=== PATIENT | female | born 1980 | race American Indian/Alaskan Native ===

== ENCOUNTER 2018-05-21 10:34 | Inpatient (IN) | payer MEDICAID ==
[2018-05-21 11:57] LABS: Bilirubin,Urine NEG (Negative); Blood,Urine NEG (Negative); Color,Urine Yellow (Yellow); Mucus,Urine FEW /HPF; Protein,Urine <15 mg/dL mg/dL (Negative); Urobilinogen,Urine < 2.0 mg/dL (<2.0); WBC,Urine < 1.0 /HPF (0.0-6.0)
[2018-05-21] MEDS ORDERED: LACTATED RINGERS 500 ML IV ONE (12:27)
[2018-05-21 12:36] LABS: Hematocrit 32.1 % (30.3-42.9); Hemoglobin 10.9 gm/dl (10.1-14.3); Mean Corpuscular HGB Conc 34 % (30-34); Mean Corpuscular Volume 86 fl (79-97); Platelet Count 245 K/mm3 (140-440); Red Blood Count 3.74 M/mm3 (3.65-5.03)
[2018-05-21 13:03] LABS: Alanine Aminotransferase 6 units/L (7-56); Uric Acid 3.6 mg/dL (3.5-7.6)
--- NOTE | 2018-05-21 13:16 | Ultrasound Report ---
ULTRASOUND BIOPHYSICAL PROFILE: History: well being Technique: Transabdominal ultrasound with Doppler interrogation. 2 - breathing movements 2 - movements 2 - posture and tone 2 - Qualitative amniotic fluid volume 8 - TOTAL SCORE OF POSSIBLE 8 Heart Rate (bpm) 137
[2018-05-21] MEDS ORDERED: TYLENOL PO ONE (13:38)
[2018-05-21] MEDS ORDERED: TYLENOL PO PRN (14:00)
[2018-05-21] MEDS ORDERED: COLACE PO PRN (14:00)
[2018-05-22] MEDS: PRENATAL VITAMIN PO SCH (10:25)
--- NOTE | 2018-05-22 13:09 | History and Physical Report ---
History of Present Illness Date of examination: 05/22/18 Date of admission: 05/21/18 14:39 Chief complaint: Elevated BP History of present illness: 37 [facility] to elevated BP. Patient is 36 4/7 weeks with a TAMMY 06/15/18. Denies Leakage of fluid, vaginal bleeding. Reports intermittent h/a with elevation of BP. Today's BP 120s-130s/70s-80s. Past History Past Surgical History: no surgical history Social history: single, smoking. denies: alcohol abuse, prescription drug abuse - Obstetrical History Expected Date of Delivery: 06/15/18 Actual Gestation: 36 Week(s) 4 Day(s) : 10 Para: 5 Hx # Term Pregnancies: 5 Number of Pregnancies: 0 Spontaneous Abortions: 2 Induced : 2 Number of Living Children: 4 Medications and Allergies Allergies Allergy/AdvReac Type Severity Reaction Status Date / Time No Known Allergies Allergy Verified 03/28/18 04:39 Home Medications Medication Instructions Recorded Confirmed Last Taken Type Acetaminophen [Tylenol Extra 1,000 mg PO PRN 03/28/18 03/28/18 03/27/18 History Strength] Pnv,Calcium 72/Iron/Folic Acid 1 tab PO QDAY 03/28/18 03/28/18 03/25/18 History [Pnv Plus Multivit Tab] Active Meds: Active Medications Acetaminophen (Tylenol) 650 mg PO Q4H PRN PRN Reason: Pain MILD(1-3)/Fever >100.5/POLLACK Docusate Sodium (Colace) 100 mg PO Q12H PRN PRN Reason: Constipation Lactated Ringer's (Lactated Ringers) 1,000 mls @ 125 mls/hr IV DIRECT EVELYN Multivitamins/Iron/Calcium ( Vitamin) 1 each PO QDAY [facility] Last Admin: 05/22/18 10:25 Dose: 1 each Documented by: Review of Systems All systems: negative - Vital Signs Vital signs: Vital Signs Pulse BP 96 H 184/88 05/21/18 10:48 05/21/18 10:48 Temp Pulse Resp BP Pulse Ox 98.6 F 74 18 142/85 98 05/22/18 11:29 05/22/18 11:29 05/22/18 11:29 05/22/18 10:18 05/22/18 11:29 - Physical Exam Breasts: Positive: normal Cardiovascular: Regular rate, Normal S1 Lungs: Positive: Clear to auscultation, Normal air movement Abdomen: Positive: normal appearance, soft, normal bowel sounds. Negative: distention, tenderness, guarding Genitourinary (Female): Positive: normal external genitalia, normal perenium Vulva: both: normal Uterus: Positive: normal size, normal contour Adnexa: both: normal Anus/Rectum: Positive: normal perianal skin Extremities: Positive: normal Deep Tendon Reflex Grade: Normal +2 - Obstetrical FHR: category 1 Uterine Contraction Pattern: Regular Uterine Tone Measurement Phase: Contraction Uterine Contraction Intensity: Mild Results Result Diagrams: 05/21/18 11:55 05/21/18 11:55 All other labs normal. Assessment and Plan A 1. IUP 36 4/7 weeks 2. 24 hour urine pending results 3. BP 120s-130s/70s-80s 4. CHTN 5. Hx IUFD 6. Hx Preeclampsia P 1. DMZ x4 doses for lung maturity 2. Deliver at 37 weeks 3. appreciate M recommendations
--- NOTE | 2018-05-22 15:51 | Consultation ---
History of Present Illness Consult date: 05/22/18 Requesting physician: LISA MOISE Reason for consult: other (Elevated Blood pressure) History of present illness: This is a 37 yo AA female female who was sent from her primary OBs office secondary to elevated BP. Patient is 36 4/7 weeks with a TAMMY 06/15/18. Denies Leakage of fluid, vaginal bleeding. Reports intermittent h/a with elevation of BP. Today's BP 120s-130s/70s-80s. Past History Past Medical History: hypertension, other (CHTN, Hx Preeclampsia, Hx IUFD, HSV II) Family/Genetic History: other (non pertinent) Social history: no significant social history - Obstetrical History : 10 Medications and Allergies Allergies Allergy/AdvReac Type Severity Reaction Status Date / Time No Known Allergies Allergy Verified 03/28/18 04:39 Home Medications Medication Instructions Recorded Confirmed Last Taken Type Acetaminophen [Tylenol Extra 1,000 mg PO PRN 03/28/18 03/28/18 03/27/18 History Strength] Pnv,Calcium 72/Iron/Folic Acid 1 tab PO QDAY 03/28/18 03/28/18 03/25/18 History [Pnv Plus Multivit Tab] Active Meds: Active Medications Acetaminophen (Tylenol) 650 mg PO Q4H PRN PRN Reason: Pain MILD(1-3)/Fever >100.5/POLLACK Docusate Sodium (Colace) 100 mg PO Q12H PRN PRN Reason: Constipation Lactated Ringer's (Lactated Ringers) 1,000 mls @ 125 mls/hr IV DIRECT EVELYN Multivitamins/Iron/Calcium ( Vitamin) 1 each PO QDAY [facility] Last Admin: 05/22/18 10:25 Dose: 1 each Documented by: Valacyclovir HCl (Valtrex) 500 mg PO BID [facility] Review of Systems Constitutional: other (denies fever, chills) Eyes: deferred Ears, nose, mouth and throat: deferred Cardiovascular: other (denies chest pain) Respiratory: other (denies shortness of breath) Gastrointestinal: other (gravid, nontender) Neurological: other (denies headache at present, visual disturbances) - Vital Signs Vital signs: Vital Signs Pulse BP 96 H 184/88 05/21/18 10:48 05/21/18 10:48 Temp Pulse Resp BP Pulse Ox 98.6 F 74 18 142/85 98 05/22/18 11:29 05/22/18 11:29 05/22/18 11:29 05/22/18 10:18 05/22/18 11:29 - Physical Exam Breasts: Positive: deferred Cardiovascular: Regular rate Lungs: Positive: Normal air movement Abdomen: Positive: normal appearance, other (gravid) Results Result Diagrams: 05/21/18 11:55 05/21/18 11:55 All other labs normal. Assessment and Plan Assessment 1. 36 4/7 weeks 2. 24 hour urine pending results 3. BP 120s-130s/70s-80s 4. CHTN 5. Hx IUFD 6. Hx Preeclampsia Recommendations 1. Betamethasone x2 doses for lung maturity 2. Deliver at 37 weeks 3. With continued elevated BP or compromise delivery is recommended Please call our remi DEVLIN, Dr. Velez for any questions or concern. Thank you.
[2018-05-22] MEDS ORDERED: DECADRON ONE (21:45)
[2018-05-22] MEDS ORDERED: DECADRON IV SCH (21:57)
[2018-05-23] MEDS: VALTREX PO SCH ×3 (01:00→22:59)
[2018-05-23] MEDS: LACTATED RINGERS 1,000 ML IV SCH ×3 (01:00→18:15)
[2018-05-23] MEDS: AMBIEN PO PRN ×2 (01:40→23:02)
--- NOTE | 2018-05-23 06:47 | Progress Note ---
Assessment and Plan A 1. IUP 36 5/7 weeks 2. 24 hour urine pending results 3. BP 120s-130s/70s-80s 4. CHTN 5. Hx IUFD 6. Hx Preeclampsia P 1. DMZ x4 doses for lung maturity ( first dose given second dose 11am today) 2. Deliver at 37 weeks ( sunday) 3. appreciate [facility] recommendations Subjective - Subjective Date of service: 05/23/18 Principal diagnosis: hx of iufd, hx of pree, obesity Interval history: 37 yo female who was sent from [place] yesterday secondary to elevated BP. Patient is 36 4/7 weeks with a TAMMY 06/15/18. Denies Leakage of fluid, vaginal bleeding. Reports intermittent h/a with elevation of BP. Today's BP 120s-130s/70s-80s. Patient reports: movement normal, no new complaints, no loss of fluid, no vaginal bleeding, no contractions Objective - Vital Signs Vital Signs: Vital Signs - 12hr 05/22/18 05/22/18 05/22/18 19:10 19:15 19:44 Temperature 98.0 F Pulse Rate 97 H 88 Respiratory 16 Rate Blood Pressure 171/97 149/81 Blood Pressure 171/97 [Left] 05/22/18 05/23/18 05/23/18 23:47 00:12 00:14 Temperature 97.4 F L Pulse Rate 95 H 85 Respiratory 18 Rate Blood Pressure 130/75 130/68 Blood Pressure [Left] 05/23/18 05/23/18 05/23/18 01:15 02:15 03:15 Temperature Pulse Rate 83 93 H 91 H Respiratory Rate Blood Pressure 139/72 110/60 127/60 Blood Pressure [Left] 05/23/18 05/23/18 05/23/18 04:15 04:45 06:15 Temperature 99 F Pulse Rate 93 H 98 H Respiratory 18 Rate Blood Pressure 120/64 156/84 Blood Pressure [Left] - Exam Breasts: normal Cardiovascular: Regular rate, Normal S1 Lungs: Clear to auscultation, Normal air movement Abdomen: Present: normal appearance, soft, normal bowel sounds. Absent: distention, tenderness, guarding Vulva: both: normal Uterus: Present: normal, firm FHR: category 1 Cervical Dilatation: 1 Cervical Effacement Percentage: 50 station: -4 Uterine Contraction Pattern: Absent Uterine Tone Measurement Phase: Resting Uterine Contraction Intensity: Mild Extremities: normal Deep Tendon Reflex Grade: Normal +2 - Labs Labs: Abnormal Labs 05/21/18 05/21/18 05/21/18 11:55 11:55 15:00 RDW 13.0 L Creatinine 0.3 L ALT 6 L Ur Total Protein 24 Hr 270.00 H Urine Total Protein 54 H Laboratory Results - last 24 hr 05/21/18 15:00 Urine Total Volume 500 Ur Total Protein 24 Hr 270.00 H Urine Total Protein 54 H
[2018-05-23] MEDS: PRENATAL VITAMIN PO SCH (11:20)
[2018-05-23] MEDS: DECADRON IM SCH ×2 (11:21→23:01)
--- NOTE | 2018-05-23 13:27 | Progress Note ---
Assessment and Plan ASSESSMENT 1. 36 weeks 5 days gestation. 2. 24 hour urine 270 mg. 3. BP 120s-130s/70s-80s - improved 4. CHTN 5. Hx IUFD 6. Hx Preeclampsia RECOMMENDATIONS 1. Betamethasone x2 doses for lung maturity 2. In the presence of overt evidence of SEVERE preeclampsia we recommend delivery of this patient. 3. At 36-37 weeks gestation; it would appear that there is some benefit to an expectant management protocol to prolong gestation in order to improve outcome without increasing maternal morbidity. In a patient with MILD preeclampsia we recommend DELIVERY at 37 weeks. In a patient with SEVERE preeclampsia we recommend DELIVERY either AT DIAGNOSIS or at 34 weeks gestation. Reference: REFERENCE: Medically indicated late- and early-term deliveries. Committee Opinion No. [id number]. [employer]. Obstet Gynecol 2013;121:76957. 4. Kindly contact [facility] if there is any question as to whether this patient is a candidate for delivery. 5. The indications for discontinuation of expectant management and DELIVERY in this patient would include ANY of the following: * heart rate abnormalities, (ie, bradycardia , repetitive late or variable decelerations) * Thrombocytopenia * Hemolysis, * Elevation in liver function tests * Blood pressure that is very labile or poorly controlled with reasonable doses of labetalol * Symptoms of severe pre-eclampsia epigastric discomfort, headache, dizziness, blurred vision, RUQ pain, seizure. * Standard obstetrical indications 6. Contact [facility] with the results of the follow-up 24 hour urine. Thank you for allowing us to participate in the care of this patient. We look forward to the opportunity to assist in her continued management. If you have any questions, we may be reached [phone]. Asha Richter M.D. Subjective - Subjective Date of service: 05/23/18 Principal diagnosis: hx of iufd, hx of pree, obesity Interval history: This is a 37 patient referred due to elevated BP. Patient is currently at 36 weeks 5 days gestation and an TAMMY 06/15/18. Denies Leakage of fluid, vaginal bleeding. Reports intermittent h/a with elevation of BP. Today's BP 120s-130s/70s-80s. Past Medical History hypertension, other (CHTN, Hx Preeclampsia, Hx IUFD, HSV II) Active Medications Acetaminophen (Tylenol) 650 mg PO Q4H PRN Docusate Sodium (Colace) 100 mg PO Q12H PRN Valacyclovir HCl (Valtrex) 500 mg PO BID EVELYN Patient reports: movement normal, no new complaints, no loss of fluid, no vaginal bleeding, no contractions Objective - Vital Signs Vital Signs: Vital Signs - 12hr 05/23/18 05/23/18 05/23/18 02:15 03:15 04:15 Temperature Pulse Rate 93 H 91 H 93 H Respiratory Rate Blood Pressure 110/60 127/60 120/64 Blood Pressure [Left] 05/23/18 05/23/18 05/23/18 04:45 06:15 07:16 Temperature 99 F Pulse Rate 98 H 91 H Respiratory 18 Rate Blood Pressure 156/84 153/93 Blood Pressure [Left] 05/23/18 05/23/18 05/23/18 09:15 09:16 12:15 Temperature 97.9 F 96.8 F L Pulse Rate 110 H 110 H 91 H Respiratory 16 16 Rate Blood Pressure 134/81 Blood Pressure 134/81 157/90 [Left] 05/23/18 12:18 Temperature Pulse Rate 91 H Respiratory Rate Blood Pressure 157/90 Blood Pressure [Left] - Labs Labs: Abnormal Labs 05/21/18 05/21/18 05/21/18 11:55 11:55 15:00 RDW 13.0 L Creatinine 0.3 L ALT 6 L Ur Total Protein 24 Hr 270.00 H Urine Total Protein 54 H Laboratory Results - last 24 hr 05/21/18 15:00 Urine Total Volume 500 Ur Total Protein 24 Hr 270.00 H Urine Total Protein 54 H
[2018-05-23] MEDS: NORMODYNE PO SCH (18:12)
[2018-05-23 19:36] LABS: Amphetamine Screen,Urine PRESUMPTIVE NEGATIVE; Benzodiazepines Screen,Urine PRESUMPTIVE NEGATIVE; Cannabinoid Screen,Urine PRESUMPTIVE NEGATIVE; Cocaine Screen,Urine PRESUMPTIVE NEGATIVE; Methadone Screen,Urine PRESUMPTIVE NEGATIVE; Opiate Screen,Urine PRESUMPTIVE NEGATIVE
[2018-05-24] MEDS: LACTATED RINGERS 1,000 ML IV SCH (01:46)
[2018-05-24] MEDS: NORMODYNE PO SCH ×3 (06:04→22:25)
--- NOTE | 2018-05-24 08:21 | Progress Note ---
Assessment and Plan A 1. IUP 36 6/7 weeks 2. 270 mg 24 hr urine protein s 3. CHTN 4. Hx IUFD 5. Hx Preeclampsia P 1. DMZ x4 doses for lung maturity ( last dose this am) 2. Deliver at 37 weeks ( sunday) 3. appreciate [facility] recommendations 4. start ripening tonight with cervidil Subjective - Subjective Date of service: 05/24/18 Principal diagnosis: hx of iufd, hx of pree, obesity Interval history: 37 [facility] BP. Patient is 36 4/7 weeks with a TAMMY 06/15/18. Denies Leakage of fluid, vaginal bleeding. Reports intermittent h/a with elevation of BP. Today's BP 120s-130s/70s-80s. Patient reports: movement normal, no new complaints, no loss of fluid, no vaginal bleeding, no contractions Objective - Vital Signs Vital Signs: Vital Signs - 12hr 05/23/18 05/24/18 05/24/18 22:26 00:15 01:15 Temperature 97.6 F Pulse Rate 83 92 H 86 Respiratory 18 Rate Blood Pressure 121/68 125/72 138/74 Blood Pressure 138/74 [Left] 05/24/18 05/24/18 05/24/18 02:15 03:30 06:01 Temperature Pulse Rate 90 103 H 89 Respiratory Rate Blood Pressure 121/71 153/82 138/84 Blood Pressure [Left] 05/24/18 05/24/18 05/24/18 06:04 06:15 08:15 Temperature Pulse Rate 89 96 H 100 H Respiratory Rate Blood Pressure 138/84 151/86 169/98 Blood Pressure [Left] - Exam Breasts: deferred Cardiovascular: Regular rate, Normal S1 Lungs: Clear to auscultation, Normal air movement Abdomen: Present: normal appearance, soft, normal bowel sounds. Absent: distention, tenderness, guarding Uterus: Present: normal, firm FHR: category 1 Cervical Dilatation: 0 - Labs Labs: Abnormal Labs 05/21/18 05/21/18 05/21/18 11:55 11:55 15:00 RDW 13.0 L Creatinine 0.3 L ALT 6 L Ur Total Protein 24 Hr 270.00 H Urine Total Protein 54 H Laboratory Results - last 24 hr 01/24/19 18:52 Urine Opiates Screen Presumptive negative Urine Methadone Screen Presumptive negative Ur Barbiturates Screen Presumptive negative Ur Phencyclidine Scrn Presumptive negative Ur Amphetamines Screen Presumptive negative U Benzodiazepines Scrn Presumptive negative Urine Cocaine Screen Presumptive negative U Marijuana (THC) Screen Presumptive negative Drugs of Abuse Note Disclamer
[2018-05-24] MEDS: VALTREX PO SCH ×2 (10:56→22:24)
[2018-05-24] MEDS: PRENATAL VITAMIN PO SCH (10:57)
[2018-05-24] MEDS ORDERED: DECADRON IM ONE (11:00)
--- NOTE | 2018-05-24 14:09 | Progress Note ---
Assessment and Plan Assessment 1. 36 6/7 weeks 2. 24 hour urine protein 270 mg 3. BP 140s-160s/80s-100s 4. CHTN 5. Hx IUFD 6. Hx Preeclampsia 7. S/P steroids for lung maturity Recommendations 1. Recommend delivery secondary to elevation of BP. I consulted with Dr. Velez and he agrees with recommendations. Please call our oncyuri [facility], Dr. Velez for any questions or concern. Thank you. Subjective - Subjective Date of service: 05/24/18 Principal diagnosis: hx of iufd, hx of pree, obesity Patient reports: movement normal, no new complaints, no loss of fluid, no vaginal bleeding, no contractions Objective - Vital Signs Vital Signs: Vital Signs - 12hr 05/24/18 05/24/18 05/24/18 02:15 03:30 06:01 Temperature Pulse Rate 90 103 H 89 Respiratory Rate Blood Pressure 121/71 153/82 138/84 05/24/18 05/24/18 05/24/18 06:04 06:15 08:15 Temperature Pulse Rate 89 96 H 100 H Respiratory Rate Blood Pressure 138/84 151/86 169/98 05/24/18 05/24/18 05/24/18 08:20 10:15 10:57 Temperature 98.4 F Pulse Rate 93 H 103 H 103 H Respiratory 18 Rate Blood Pressure 168/105 140/84 140/84 05/24/18 05/24/18 11:15 13:15 Temperature Pulse Rate 90 94 H Respiratory Rate Blood Pressure 143/77 141/85 - Exam Breasts: deferred Cardiovascular: Regular rate Lungs: Normal air movement Abdomen: Present: normal appearance, other (gravid) - Labs Labs: Abnormal Labs 05/21/18 05/21/18 05/21/18 11:55 11:55 15:00 RDW 13.0 L Creatinine 0.3 L ALT 6 L Ur Total Protein 24 Hr 270.00 H Urine Total Protein 54 H Laboratory Results - last 24 hr 05/23/18 18:52 Urine Opiates Screen Presumptive negative Urine Methadone Screen Presumptive negative Ur Barbiturates Screen Presumptive negative Ur Phencyclidine Scrn Presumptive negative Ur Amphetamines Screen Presumptive negative U Benzodiazepines Scrn Presumptive negative Urine Cocaine Screen Presumptive negative U Marijuana (THC) Screen Presumptive negative Drugs of Abuse Note Disclamer
[2018-05-24] MEDS ORDERED: CERVIDIL VG ONE (15:00)
[2018-05-24] MEDS: AMBIEN PO PRN (22:25)
[2018-05-25] MEDS: LACTATED RINGERS 1,000 ML IV SCH ×2 (06:35→18:18)
[2018-05-25] MEDS: PITOCin/NS 30 UNIT/500ML 30 UNITS/500 ML BAG IV SCH ×2 (06:35→13:37)
[2018-05-25] MEDS: NORMODYNE PO SCH ×2 (09:37→21:39)
[2018-05-25] MEDS: VALTREX PO SCH ×2 (09:37→21:40)
[2018-05-25 11:17] LABS: Hematocrit 27.3 % (30.3-42.9); Hemoglobin 9.2 gm/dl (10.1-14.3); Mean Corpuscular HGB Conc 34 % (30-34); Mean Corpuscular Volume 86 fl (79-97); Platelet Count 216 K/mm3 (140-440); Red Blood Count 3.18 M/mm3 (3.65-5.03); Red Cell Distribution Width 13.6 % (13.2-15.2)
[2018-05-25] MEDS ORDERED: STADOL IV PRN (12:57)
[2018-05-25] MEDS ORDERED: STADOL ONE (13:09)
[2018-05-25] MEDS: PRENATAL VITAMIN PO SCH (15:06)
[2018-05-25] MEDS ORDERED: AMPICILLIN/NS 2 GM/100 ML 2 GM/100 ML BAG IV ONE (16:00)
[2018-05-25] MEDS ORDERED: NARCAN 2 MG/2 ML IV PRN (17:48)
--- NOTE | 2018-05-25 17:50 | Anesthesia Consultation ---
Anesthesia Consult and Med Hx Date of service: 05/25/18 - Airway Anesthetic Teeth Evaluation: Good ROM Head & Neck: Adequate Mental/Hyoid Distance: Adequate Mallampati Class: Class II Intubation Access Assessment: Probably Good - Pulmonary Exam CTA: Yes - Cardiac Exam Cardiac Exam: RRR - Pre-Operative Health Status ASA Pre-Surgery Classification: ASA3 Proposed Anesthetic Plan: Epidural - Pulmonary Hx Asthma: No COPD: No - Cardiovascular System Hx Hypertension: No - Central Nervous System Hx Seizures: No Hx Psychiatric Problems: Yes (anxiety/depression (no meds)) - Endocrine Hx Renal Disease: No Hx End Stage Renal Disease: No Hx Hypothyroidism: No Hx Hyperthyroidism: No - Hematic Hx Anemia: Yes (not currently) Hx Sickle Cell Disease: No - Other Systems Hx Alcohol Use: No - Additional Comments Anesthesia Medical History Comments: Relevent Labs noted
[2018-05-25] MEDS ORDERED: fentaNYL-BUPIV 2 MCG/ML-0.125% 200 MCG/100 ML BAG EPIDURAL SCH (18:00)
[2018-05-26] MEDS ORDERED: REGLAN ONE (11:25)
[2018-05-26] MEDS ORDERED: PEPCID IV ONE ×2 (11:25→12:00)
[2018-05-26] MEDS ORDERED: BICITRA ONE (11:25)
[2018-05-26] MEDS ORDERED: PITOCin/NS 20 UNIT/1000ML DRIP 20,000 MILLIUNITS/1,000 ML BAG IV ONE (11:25)
[2018-05-26] MEDS ORDERED: ANCEF/STERILE WATER 2 GM/20 ML 2 GM/20 ML SYRINGE IV ONE (11:26)
--- NOTE | 2018-05-26 11:31 | Progress Note ---
Assessment and Plan Day 3 of 3 day induction for chronic htn with superimposed preeclampsia. Patient has not made any progress toward delivery. Will now proceed with . Consents signed and placed on the chart. Subjective - Subjective Date of service: 05/26/18 Principal diagnosis: hx of iufd, hx of pree, obesity Interval history: Patient had cervidil placed on 05/24, removed at 0400 on 05/25. Patient was arom at 2:30 for clear fluid. She was 2cm/50% at that time. Patient was on pitocin thru the night but did not change her cervix despite contractions. Patient is now requesting which is not unreasonable. Patient reports: movement normal, no new complaints, no loss of fluid, no vaginal bleeding, no contractions Objective - Vital Signs Vital Signs: Vital Signs - 12hr 05/25/18 05/25/18 05/26/18 23:33 23:49 00:04 Temperature Pulse Rate 64 69 70 Respiratory Rate Blood Pressure 128/72 122/68 126/67 05/26/18 05/26/18 05/26/18 00:15 00:19 00:35 Temperature 98.9 F Pulse Rate 70 71 Respiratory Rate Blood Pressure 127/76 131/79 05/26/18 05/26/18 05/26/18 00:49 01:06 01:19 Temperature Pulse Rate 68 63 70 Respiratory Rate Blood Pressure 115/71 121/70 148/84 05/26/18 05/26/18 05/26/18 01:34 01:49 01:59 Temperature Pulse Rate 71 68 Respiratory 18 Rate Blood Pressure 150/85 139/87 131/79 05/26/18 05/26/18 05/26/18 02:03 06:30 06:52 Temperature 98.7 F 99.0 F Pulse Rate 76 Respiratory Rate Blood Pressure 146/72 - Exam Breasts: deferred Cardiovascular: Regular rate, Normal S1, Normal S2 Lungs: Clear to auscultation, Normal air movement Abdomen: Present: normal appearance, soft, normal bowel sounds Vulva: both: normal Uterus: Present: normal FHR: auscultation normal Cervical Dilatation: 2 Cervical Effacement Percentage: 50 Uterine Contraction Intensity: Moderate - Labs Labs: Abnormal Labs 05/21/18 05/21/18 05/21/18 11:55 11:55 15:00 RBC Hgb Hct RDW 13.0 L Creatinine 0.3 L ALT 6 L Ur Total Protein 24 Hr 270.00 H Urine Total Protein 54 H 05/25/18 11:00 RBC 3.18 L Hgb 9.2 L Hct 27.3 L RDW Creatinine ALT Ur Total Protein 24 Hr Urine Total Protein Laboratory Results - last 24 hr 05/26/18 08:56 Blood Type O POSITIVE Antibody Screen Negative
[2018-05-26] MEDS ORDERED: LACTATED RINGERS 1,000 ML IV SCH (12:00)
[2018-05-26] MEDS ORDERED: PITOCin/NS 20 UNIT/1000ML DRIP 20 UNITS/1,000 ML BAG IV SCH ×2 (12:00→16:01)
[2018-05-26] MEDS ORDERED: BICITRA PO ONE (12:00)
[2018-05-26] MEDS ORDERED: REGLAN IV ONE (12:00)
[2018-05-26] MEDS ORDERED: ANCEF/STERILE WATER 2 GM/20 ML IV ONE (12:20)
[2018-05-26] MEDS ORDERED: XYLOCAINE MPF 2% ONE ×6 (12:30→13:38)
[2018-05-26] MEDS ORDERED: NACL 0.9% IR ONE (12:43)
[2018-05-26] MEDS ORDERED: ASTRAMORPH PF 10MG/10ML ONE (12:47)
[2018-05-26] MEDS ORDERED: WATER FOR IRRIG STERILE IR ONE (12:50)
[2018-05-26] MEDS ORDERED: VERSED ONE (12:52)
[2018-05-26] MEDS ORDERED: NARCAN 0.4 MG/1 ML IV PRN ×2 (13:49→16:01)
[2018-05-26] MEDS ORDERED: PHENERGAN PR PRN (13:49)
[2018-05-26] MEDS ORDERED: PHENERGAN PO PRN (13:49)
[2018-05-26] MEDS ORDERED: DILAUDID IV PRN ×2 (13:49→14:05)
[2018-05-26] MEDS ORDERED: ZOFRAN IV PRN (13:49)
[2018-05-26] MEDS ORDERED: BENADRYL IV PRN (13:49)
[2018-05-26] MEDS ORDERED: SODIUM CHLORIDE FLUSH SYRINGE 10 ML IV NR ×2 (14:00→16:01)
[2018-05-26] MEDS ORDERED: TORADOL IV ONE (14:03)
[2018-05-26] MEDS: NORMODYNE PO SCH (14:38)
--- NOTE | 2018-05-26 14:47 | Procedure Note ---
OB Delivery Note - Delivery Date of Delivery: 05/26/18 Surgeon: SCOTTIE LOPEZ Estimated blood loss: other (900) - Section Preop diagnosis: arrest of dilation Postop diagnosis: same section procedure: primary low transverse Disposition: PACU Complications: none Narrative: see op report - A at 1 minute: 8 at 5 minutes: 9 Infant Gender: Male (2831g 6 pounds 4 ounces)
--- NOTE | 2018-05-26 14:53 | Operative Report ---
Operative Report Operative Report: The operative report for patient Vanessa Lin Date of service 05/26/2018 Preoperative diagnosis: Intrauterine at 37.1 weeks 2. Chronic hypertension 3. Failed induction Postoperative diagnosis: Same Procedure: Primary low transverse section Surgeon: Dr. Crystal Bernal EBL: 900 mL Urine output: 200 mL IV fluids: 1100 mL Findings: Viable male in the vertex occiput posterior position. Weight 6 lbs. 4 oz. 2831 g Apgars 8 and 9]. Otherwise normal pelvic anatomy Specimens: None Complications: None Indications: Ms. Sheikh is a 37-year-old 10 para 4 who was undergoing induction due to chronic hypertension and superimposed preeclampsia which began on May 24. Cervidil was placed and then later removed following which she remained on Pitocin, however her cervix never dilated past 2 cm. Procedure: The patient was admitted to the OR with IV running and in place. She was properly identified as herself. [Her spinal had been placed in the room and she was already under the effects of anesthesia upon entry into the OR]. She was placed in the dorsal supine position with a leftward tilt. A Jc catheter was inserted. She was then prepped and draped in the normal sterile fashion. An Allis test was used to confirm adequate anesthesia. Once confirmed, the incision was made with the scalpel and carried to the underlying fascia using the scalpel and the Bovie. The fascia was incised in the midline and incision was extended bilaterally using the curved Hickey scissors. The fascia was then dissected from the underlying rectus muscles in a series of sharp and blunt dissection using the Hickey scissors. Muscles were in the in the midline sharply using Metzenbaum scissors and the peritoneum was entered into bluntly using the surgeon's fingers. A bladder blade was then placed into the incision to protect the bladder. Following this the bladder flap was created. Hysterotomy incision was then made in the scalpel. Upon uterine entry, the amniotic sac was ruptured for clear fluid. The was then delivered in the occiput posterior position. His mouth and nose were suctioned on the field. The cord was clamped and cut and he was handed to the waiting NICU personnel. The placenta was delivered manually and taken off the field. The uterus was then exteriorized and cleared of all clots and debris. The hysterotomy incision was then closed in a running locked fashion using 0 Vicryl. The abdomen was then copiously irrigated with warm normal saline. Following this the uterus was replaced into the abdominal cavity. At this point the muscles were reapproximated in the midline using individual sutures of 0 Vicryl. Following this the fascia was closed in a running fashion using 0 Vicryl. Tissue was then copiously irrigated. Skin was closed in a running fashion using 3-0 Monocryl. The patient stated that she had signed consents for bilateral tubal ligation however there was none in her chart therefore the ligation was not performed.The sponge lap needle and instrument counts were correct 2. The patient tolerated the procedure well. She was taken to recovery in stable condition.
[2018-05-26] MEDS ORDERED: LANSINOH TP PRN (16:01)
[2018-05-26] MEDS ORDERED: MORPHINE IV PRN (16:01)
[2018-05-26] MEDS ORDERED: D5LR 1,000 ML IV SCH (16:01)
[2018-05-26] MEDS ORDERED: MYLICON PO PRN (16:01)
[2018-05-26] MEDS ORDERED: TUCKS PAD TP PRN (16:01)
[2018-05-26] MEDS: IBUPROFEN PO PRN ×2 (17:43→22:45)
[2018-05-26] MEDS: PERCOCET 5/325 PO PRN ×2 (17:43→22:34)
[2018-05-26] MEDS: PROCARDIA XL PO SCH (22:14)
[2018-05-27 03:27] LABS: Hematocrit 26.3 % (30.3-42.9); Hemoglobin 8.7 gm/dl (10.1-14.3)
[2018-05-27] MEDS: MILK OF MAGNESIA PO PRN ×2 (06:01→21:48)
[2018-05-27] MEDS: PERCOCET 5/325 PO PRN ×3 (06:03→21:48)
[2018-05-27] MEDS: IBUPROFEN PO PRN ×3 (06:04→21:49)
--- NOTE | 2018-05-27 08:56 | Progress Note ---
Assessment and Plan - Patient Problems (1) delivery delivered Current Visit: Yes Status: Acute Plan to address problem: patient doing well routine postop care Subjective - Subjective Date of service: 05/27/18 Principal diagnosis: hx of iufd, hx of pree, obesity Interval history: Patient without complaints. States she has had flatus. Pain well controlled Patient reports: appetite normal, voiding normally, pain well controlled Objective - Vital Signs Latest vital signs: Vital Signs Temp Pulse Resp BP BP Pulse Ox 05/27/18 07:04 18 05/27/18 07:03 18 05/27/18 04:00 98.2 F 98 H 20 135/82 05/27/18 00:00 98.0 F 83 18 130/75 05/26/18 22:00 98.3 F 76 16 131/77 05/26/18 20:05 98.2 F 72 18 135/88 05/26/18 15:20 98.3 F 81 20 132/83 99 05/26/18 15:07 98.8 F 88 18 132/68 99 05/26/18 14:43 77 18 149/86 99 05/26/18 14:38 70 140/71 05/26/18 14:30 81 18 150/85 100 05/26/18 14:29 18 05/26/18 14:15 77 18 158/90 100 05/26/18 14:10 18 05/26/18 14:00 78 20 129/72 100 05/26/18 13:44 68 18 118/72 99 05/26/18 13:39 69 18 114/67 99 05/26/18 13:34 78 18 114/68 99 05/26/18 13:29 97.7 F 77 20 113/64 99 05/26/18 12:00 90 152/81 05/26/18 11:57 89 163/87 Intake and Output 05/26/18 05/27/18 05/27/18 22:59 06:59 14:59 Intake Total 250 480 Output Total 300 Balance 250 180 Intake: Oral 480 Other 250 Output: Urine 300 Indwelling Catheter 300 Other: Total, Intake Amount 250 240 Total, Output Amount 300 # Voids Void 2 - Exam Abdomen: Present: normal appearance Incision: Present: dressed - Labs Labs: Abnormal lab results 05/27/18 Range/Units 02:53 Hgb 8.7 L (10.1-14.3) gm/dl Hct 26.3 L (30.3-42.9) %
[2018-05-27] MEDS: FEOSOL PO SCH (10:15)
[2018-05-27] MEDS: PROCARDIA XL PO SCH ×2 (10:15→21:48)
[2018-05-28] MEDS: IBUPROFEN PO PRN ×2 (06:28→15:02)
[2018-05-28] MEDS: PERCOCET 5/325 PO PRN ×2 (06:28→15:01)
--- NOTE | 2018-05-28 08:13 | Progress Note ---
Assessment and Plan - Patient Problems (1) delivery delivered Current Visit: Yes Status: Acute Plan to address problem: patient doing well Subjective - Subjective Date of service: 05/28/18 Principal diagnosis: hx of iufd, hx of pree, obesity Interval history: Patient without complaints. States she has had flatus. Pain well controlled. Tolerating regular diet. Patient reports: appetite normal, voiding normally, pain well controlled : doing well Objective - Vital Signs Latest vital signs: Vital Signs Temp Pulse Resp BP BP Pulse Ox 05/28/18 01:38 98.5 F 86 20 107/64 95 05/27/18 16:47 98.7 F 98 H 20 115/70 97 05/27/18 11:49 98.6 F 96 H 20 115/76 96 05/27/18 08:40 98.6 F 96 H 20 126/80 99 Intake and Output 05/27/18 05/28/18 05/28/18 22:59 06:59 14:59 Intake Total 240 Balance 240 Intake: Oral 240 Other: Total, Intake Amount 240 - Exam Breasts: Present: deferred Cardiovascular: Present: Regular rate Lungs: Present: Clear to auscultation
--- NOTE | 2018-05-28 08:15 | Discharge Summary ---
Providers - Providers Date of Admission: 05/23/18 10:00 Date of discharge: 05/28/18 Attending physician: LISA MOISE MD Primary care physician: LISA MOISE MD Hospitalization Reason for admission: induction of labor Delivery: Procedure: section, primary low transverse Incision: normal Discharge diagnosis: IUP at term delivered Hospital course: Patient admitted for induction which failed. Patient underwent a delivery. uncomplicated Condition at discharge: Good Disposition: TO HOME OR SELFCARE - Discharge Diagnoses (1) delivery delivered Status: Acute Plan - Discharge Medications Prescriptions: Docusate Sodium [Colace] 100 mg PO BID PRN #60 capsule PRN Reason: Constipation Ferrous Sulfate [Feosol 325 MG tab] 325 mg PO BID #60 tablet Ibuprofen [Motrin] 800 mg PO Q8HR PRN #60 tablet PRN Reason: Pain, Mild (1-3) oxyCODONE /ACETAMINOPHEN [Percocet 5/325] 1 tab PO Q6HR PRN #30 tablet PRN Reason: Pain - Provider Discharge Summary Activity: no sex for 6 weeks, no heavy lifting 4 weeks, no strenuous exercise Diet: routine Instructions: routine Additional instructions: [] Smoking cessation referral if applicable(refer to patient education folder for contact #) [] Refer to [facility] Booklet Call your doctor immediately for: * Fever > 100.5 * Heavy vaginal bleeding ( >1 pad per hour) * Severe persistent headache * Shortness of breath * Reddened, hot, painful area to leg or breast * schedule visit in 2 weeks - Follow up plan
[2018-05-28 08:50] VITALS: BP 112/70
[2018-05-28] MEDS: PROCARDIA XL PO SCH (10:29)
[2018-05-28] MEDS: FEOSOL PO SCH (10:29)
== END 2018-05-28 15:25 | disposition home or self-care (01) | DRG 765 ==
LOC: TRG 10:34 → LD 14:39 → TRG 14:39 → OBSVTOIN 05-23 10:00 → OB 05-26 15:49
PROVIDERS: ADMIT Obstetrics & Gynecology; ATTEND Obstetrics & Gynecology
PROC: 3E033VJ Introduction of Other Hormone into Peripheral Vein, Percutaneous Approach (ICD-10-PCS; 2018-05-23)
PROC: 10D00Z1 Extraction of Products of Conception, Low, Open Approach (ICD-10-PCS; principal; 2018-05-26)
DX: O11.4 Pre-existing hypertension with pre-eclampsia, complicating childbirth (principal); D62 Acute posthemorrhagic anemia; O61.0 Failed medical induction of labor; Z37.0 Single live birth; Z3A.36 36 weeks gestation of pregnancy; O99.344 Other mental disorders complicating childbirth; F41.9 Anxiety disorder, unspecified; F32.9 Major depressive disorder, single episode, unspecified; O99.02 Anemia complicating childbirth
CPT/HCPCS: 36415; 76819; 80307; 81001; 82565; 83615; 84156; 84450; 84460; 84550; 85014; 85018; 85027; 86850; 86900; 86901; 99406; G0378; J0290; J0595; J0690; J1100; J1170; J1200; J1885; J2250; J2274; J2590; J2765; J7120; J7121

== ENCOUNTER 2019-07-02 12:51 | Inpatient (IN) | payer MEDICAID, OTHER ==
[2019-07-02] MEDS ORDERED: IBUPROFEN 600 MG TAB PO ONE ×2 (14:05→16:43)
--- NOTE | 2019-07-02 14:05 | Event Note ---
ED Screening Note Date of service: 07/02/19 Time: 14:00 ED Screening Note: 38 y o female presents to ED cc of 2 days worsening of sob with chest pain and tightness today: fever, cough no pmh of copd or asthma This initial assessment/diagnostic orders/clinical plan/treatment(s) is/are subject to change based on patients health status, clinical progression and re- assessment by fellow clinical providers in the ED. Further treatment and workup at subsequent clinical providers discretion. Patient/guardian urged not to elope from the ED as their condition may be serious if not clinically assessed and managed. Initial orders include: labs, cxr, ekg
[2019-07-02 14:31] LABS: Basophils % (Auto) 0.3 % (0.0-1.8); Hematocrit 43.4 % (30.3-42.9); Hemoglobin 14.3 gm/dl (10.1-14.3); Lymphocytes # (Auto) 0.6 K/mm3 (1.2-5.4); Lymphocytes % (Auto) 7.5 % (13.4-35.0); Mean Corpuscular HGB Conc 33 % (30-34); Mean Corpuscular Volume 90 fl (79-97); Monocytes # (Auto) 0.5 K/mm3 (0.0-0.8); Monocytes % (Auto) 6.1 % (0.0-7.3); Platelet Count 196 K/mm3 (140-440); Red Blood Count 4.83 M/mm3 (3.65-5.03)
[2019-07-02 14:50] LABS: BUN/Creatinine Ratio 13; Blood Urea Nitrogen 8 mg/dL (7-17); Calcium 8.9 mg/dL (8.4-10.2); Hemolysis Index 4
[2019-07-02 15:34] LABS: Bacteria,Urine 1+ /HPF (Negative); Bilirubin,Urine NEG (Negative); Blood,Urine NEG (Negative); Color,Urine Yellow (Yellow); Urobilinogen,Urine < 2.0 mg/dL (<2.0)
--- NOTE | 2019-07-02 15:59 | XRay Report ---
CHEST 2 VIEWS INDICATION / CLINICAL INFORMATION: pain/sob. COMPARISON: None available. FINDINGS: SUPPORT DEVICES: None. HEART / MEDIASTINUM: Borderline cardiomegaly and pulmonary venous hypertension LUNGS / PLEURA: Diffuse interstitial disease. No pneumothorax. ADDITIONAL FINDINGS: IMPRESSION: 1. Acute interstitial pulmonary edema. Signer Name: Red Vincent MD Signed: 07/02/2019 3:55 PM Workstation Name: [id number]
[2019-07-02] MEDS ORDERED: SODIUM CHLORIDE 0.9% 1000 ML IV SOLN IV ONE (19:10)
[2019-07-02] MEDS ORDERED: CEFEPIME/NS 2 GM/100 ML 2 GM/100 ML BAG IV ONE (19:11)
--- NOTE | 2019-07-02 19:12 | Emergency Department Report ---
ED General Adult HPI - General Chief complaint: Upper Respiratory Infection Stated complaint: SOB,CHILLS,BODYACHES Time Seen by Provider: 07/02/19 19:07 Source: patient Mode of arrival: Ambulatory Limitations: No Limitations - History of Present Illness Initial comments: Patient is a 38-year-old female that presents emergency room with complaints of body ache, fever, chills, upper respiratory congestion that started 1 day ago. Patient also complains of shortness of breath that started 2 weeks ago. Patient states her shortness of breath is worsening. Patient states that she has not taken anything for her fever. Patient states she did not get a flu shot. Patient states her cough is dry. Patient states her shortness of breath is better with rest and worse with exertion. Patient denies chest pain. Patient states denies past medical history. Patient also complains of lower abdominal pain. Patient states her lower abdominal pain is a 9 out of 10. Patient states her pain is better with rest and worse with movement. Patient denies dysuria. Patient denies diarrhea. Patient denies constipation. Patient denies nausea vomiting. Patient denies recent travel outside the country. Patient denies coming in contact with anybody who is traveled to [place]. -: Sudden Severity scale (0 -10): 9 - Related Data Home Medications Medication Instructions Recorded Confirmed Last Taken Pnv,Calcium 72/Iron/Folic Acid 1 tab PO QDAY 03/28/18 05/24/18 05/17/18 [Pnv Plus Multivit Tab] Labetalol HCl 200 mg PO BID 05/24/18 05/24/18 05/20/18 Previous Rx's Medication Instructions Recorded Last Taken Type Docusate Sodium [Colace] 100 mg PO BID PRN #60 capsule 05/28/18 Unknown Rx Ferrous Sulfate [Feosol 325 MG tab] 325 mg PO BID #60 tablet 05/28/18 Unknown Rx Ibuprofen [Motrin] 800 mg PO Q8HR PRN #60 tablet 05/28/18 Unknown Rx oxyCODONE /ACETAMINOPHEN [Percocet 1 tab PO Q6HR PRN #30 tablet 05/28/18 Unknown Rx 5/325] Allergies Allergy/AdvReac Type Severity Reaction Status Date / Time No Known Allergies Allergy Verified 03/28/18 04:39 ED Review of Systems ROS: Stated complaint: SOB,CHILLS,BODYACHES Other details as noted in HPI Constitutional: chills, fever, malaise Eyes: denies: eye pain, eye discharge, vision change ENT: denies: ear pain, throat pain Respiratory: cough, shortness of breath, SOB with exertion, SOB at rest. denies: wheezing Cardiovascular: denies: chest pain, palpitations Endocrine: no symptoms reported Gastrointestinal: denies: abdominal pain, nausea, diarrhea Genitourinary: denies: urgency, dysuria, discharge Musculoskeletal: denies: back pain, joint swelling, arthralgia Skin: denies: rash, lesions Neurological: denies: headache, weakness, paresthesias Psychiatric: denies: anxiety, depression Hematological/Lymphatic: denies: easy bleeding, easy bruising ED Past Medical Hx - Past Medical History Previous Medical History?: No Hx Hypertension: No Hx Diabetes: No Hx Deep Vein Thrombosis: No Hx Renal Disease: No Hx Sickle Cell Disease: No Hx Seizures: No Hx Asthma: No Hx COPD: No Hx HIV: No - Surgical History Past Surgical History?: No - Social History Smoking Status: Unknown if ever smoked Substance Use Type: None - Medications Home Medications: Home Medications Medication Instructions Recorded Confirmed Last Taken Type Pnv,Calcium 72/Iron/Folic Acid 1 tab PO QDAY 03/28/18 05/24/18 05/17/18 History [Pnv Plus Multivit Tab] Labetalol HCl 200 mg PO BID 05/24/18 05/24/18 05/20/18 History Docusate Sodium [Colace] 100 mg PO BID PRN #60 capsule 05/28/18 Unknown Rx Ferrous Sulfate [Feosol 325 MG tab] 325 mg PO BID #60 tablet 05/28/18 Unknown Rx Ibuprofen [Motrin] 800 mg PO Q8HR PRN #60 tablet 05/28/18 Unknown Rx oxyCODONE /ACETAMINOPHEN [Percocet 1 tab PO Q6HR PRN #30 tablet 05/28/18 Unknown Rx 5/325] ED Physical Exam - General Limitations: No Limitations General appearance: alert, in distress - Head Head exam: Present: atraumatic, normocephalic - Eye Eye exam: Present: normal appearance - ENT ENT exam: Present: mucous membranes moist - Neck Neck exam: Present: normal inspection - Respiratory Respiratory exam: Present: respiratory distress, rales, rhonchi - Cardiovascular Cardiovascular Exam: Present: regular rate, normal rhythm. Absent: systolic murmur, diastolic murmur, rubs, gallop - GI/Abdominal GI/Abdominal exam: Present: soft, normal bowel sounds. Absent: distended, tenderness, guarding - Extremities Exam Extremities exam: Present: normal inspection - Back Exam Back exam: Present: normal inspection - Neurological Exam Neurological exam: Present: alert, oriented X3 - Psychiatric Psychiatric exam: Present: normal affect, normal mood - Skin Skin exam: Present: warm, dry, intact, normal color. Absent: rash ED Course Vital Signs 07/02/19 07/02/19 07/02/19 13:10 14:28 17:30 Temperature 100.7 F H 102.9 F H Pulse Rate 126 H 126 H Respiratory 22 22 18 Rate Blood Pressure 171/111 Blood Pressure 171/111 [Right] O2 Sat by Pulse 94 94 Oximetry 07/02/19 07/02/19 07/02/19 19:30 20:10 20:30 Temperature 99.6 F Pulse Rate 122 H 117 H Respiratory 20 24 37 H Rate Blood Pressure 169/108 Blood Pressure 168/111 [Right] O2 Sat by Pulse 96 96 Oximetry 07/02/19 07/02/19 07/02/19 21:29 21:59 22:30 Temperature Pulse Rate 117 H Respiratory 20 24 36 H Rate Blood Pressure 166/100 Blood Pressure [Right] O2 Sat by Pulse 95 Oximetry 07/02/19 07/02/19 07/03/19 23:00 23:30 00:30 Temperature Pulse Rate 111 H 112 H 118 H Respiratory 34 H 36 H 38 H Rate Blood Pressure 156/103 158/106 156/105 Blood Pressure [Right] O2 Sat by Pulse 95 96 96 Oximetry 07/03/19 07/03/19 07/03/19 01:30 01:31 01:50 Temperature Pulse Rate 113 H 112 H 118 H Respiratory 34 H 40 H Rate Blood Pressure 139/91 139/91 Blood Pressure 139/91 [Right] O2 Sat by Pulse 98 98 Oximetry 07/03/19 02:00 Temperature Pulse Rate 100 H Respiratory 26 H Rate Blood Pressure 149/95 Blood Pressure [Right] O2 Sat by Pulse Oximetry - Reevaluation(s) Reevaluation #1: Initial evaluation was done and the patient was found to be hypoxic. Patient was placed on a film crew member, pulse ox and placed on 2 L of oxygen. 07/02/19 19:37 Reevaluation #2: Patient oxygen has improved. Patient's vital signs will continue to monitor. 07/02/19 20:05 Reevaluation #3: Patient complains of severe abdominal pain. Patient was given 1 mg of Dilaudid. 07/02/19 21:38 Reevaluation #4: I discussed all results with patient. I discussed plan of care with patient. Patient agrees with plan of care and admission. Patient to be admitted to the hospitalist service. Patient unable to receive fluids with the sirs criteria due to her heart failure. Patient fever and tachypnea has improved. Patient given Lasix 40 mg IV. 07/02/19 23:16 - Consultations Consultation #1: Hospitalist consulted for admission. Hospitalist to admit patient. Bridge orders placed. 07/02/19 23:15 ED Medical Decision Making - Lab Data Result diagrams: 07/02/19 14:19 07/02/19 14:19 Laboratory Results - last 24 hr 07/02/19 07/02/19 07/02/19 14:19 14:19 14:19 WBC 7.5 RBC 4.83 Hgb 14.3 Hct 43.4 H MCV 90 MCH 30 MCHC 33 RDW 14.0 Plt Count 196 Lymph % (Auto) 7.5 L [place] % (Auto) 6.1 Eos % (Auto) 0.0 Baso % (Auto) 0.3 Lymph # 0.6 L Kent # 0.5 Eos # 0.0 Baso # 0.0 Seg Neutrophils % 86.1 H Seg Neutrophils # 6.5 Sodium 135 L Potassium 3.8 Chloride 98.1 Carbon Dioxide 21 L Anion Gap 20 BUN 8 Creatinine 0.6 L Estimated GFR > 60 BUN/Creatinine Ratio 13 Glucose 120 H Lactic Acid Calcium 8.9 Total Creatine Kinase CK-MB (CK-2) CK-MB (CK-2) Rel Index Troponin T NT-Pro-B Natriuret Pep HCG, Quant 1.16 Urine Color Urine Turbidity Urine pH Ur Specific Makanda Urine Protein Urine Glucose (UA) Urine Ketones Urine Blood Urine Nitrite Urine Bilirubin Urine Urobilinogen Ur Leukocyte Esterase Urine WBC (Auto) Urine RBC (Auto) U Epithel Cells (Auto) Urine Bacteria (Auto) 07/02/19 07/02/19 07/02/19 14:27 18:58 18:58 WBC RBC Hgb Hct MCV MCH MCHC RDW Plt Count Lymph % (Auto) Kent % (Auto) Eos % (Auto) Baso % (Auto) Lymph # Kent # Eos # Baso # Seg Neutrophils % Seg Neutrophils # Sodium Potassium Chloride Carbon Dioxide Anion Gap BUN Creatinine Estimated GFR BUN/Creatinine Ratio Glucose Lactic Acid Calcium Total Creatine Kinase 70 CK-MB (CK-2) 1.8 CK-MB (CK-2) Rel Index 2.5 Troponin T < 0.010 NT-Pro-B Natriuret Pep 2174 H HCG, Quant Urine Color Yellow Urine Turbidity Clear Urine pH 8.0 H Ur Specific Makanda 1.011 Urine Protein 100 mg/dl Urine Glucose (UA) Neg Urine Ketones Neg Urine Blood Neg Urine Nitrite Neg Urine Bilirubin Neg Urine Urobilinogen < 2.0 Ur Leukocyte Esterase Neg Urine WBC (Auto) 1.0 Urine RBC (Auto) 1.0 U Epithel Cells (Auto) 7.0 Urine Bacteria (Auto) 1+ 07/02/19 07/02/19 07/02/19 19:16 19:16 23:08 WBC RBC Hgb Hct MCV MCH MCHC RDW Plt Count Lymph % (Auto) Kent % (Auto) Eos % (Auto) Baso % (Auto) Lymph # Kent # Eos # Baso # Seg Neutrophils % Seg Neutrophils # Sodium Potassium Chloride Carbon Dioxide Anion Gap BUN Creatinine Estimated GFR BUN/Creatinine Ratio Glucose Lactic Acid 1.30 1.00 Calcium Total Creatine Kinase CK-MB (CK-2) CK-MB (CK-2) Rel Index Troponin T < 0.010 NT-Pro-B Natriuret Pep HCG, Quant Urine Color Urine Turbidity Urine pH Ur Specific Makanda Urine Protein Urine Glucose (UA) Urine Ketones Urine Blood Urine Nitrite Urine Bilirubin Urine Urobilinogen Ur Leukocyte Esterase Urine WBC (Auto) Urine RBC (Auto) U Epithel Cells (Auto) Urine Bacteria (Auto) - EKG Data -: EKG Interpreted by De EKG shows normal: sinus rhythm, axis, intervals, QRS complexes, ST-T waves Rate: tachycardia - Radiology Data Radiology results: report reviewed CHEST 2 VIEWS INDICATION / CLINICAL INFORMATION: pain/sob. COMPARISON: None available. FINDINGS: SUPPORT DEVICES: None. HEART / MEDIASTINUM: Borderline cardiomegaly and pulmonary venous hypertension LUNGS / PLEURA: Diffuse interstitial disease. No pneumothorax. ADDITIONAL FINDINGS: IMPRESSION: 1. Acute interstitial pulmonary edema. CT angiography of the chest with 2-D reconstructions INDICATION: Shortness of breath x2 weeks and pelvic pain Thin section axial images were obtained as well as 2-D reformatted MIP images in all 3 planes FINDINGS: There is slight to moderate mediastinal adenopathy probably reactive. There is a minimal left pleural effusion and small right pleural effusion. No pericardial fluid is seen. There is moderate cardiomegaly. No thoracic aortic aneurysm or dissection present. Lung windows show thickened septae consistent with interstitial edema. In addition there is relatively extensive left lower lobe consolidation likely pneumonia. No pulmonary nodules or masses. No lung abscess seen. Routine axial images as well as 2-D MIPS reformatted images show no evidence of emboli. CT of the abdomen shows a normal-appearing liver, spleen, pancreas, adrenal glands and kidneys. Gallstones are seen without cholecystitis. No biliary tree dilation. No fluid or adenopathy in the upper abdomen. CT of the pelvis shows a normal appendix. No uterine masses are seen. There are small ovarian cysts with minimal free fluid. There is extensive colonic diverticulosis without definite diverticulitis. No hernia or bowel obstruction. No significant skeletal lesion. There is thickening of the wall the sigmoid colon but again there is no surrounding inflammation. IMPRESSION: Mild heart failure with left lower lobe pneumonia. Incidental findings in the abdomen and pelvis without acute process. No PTE seen. - Medical Decision Making Patient is a 38-year-old female that presents emergency room with complaints of shortness of breath x2 weeks that is worsening, upper respiratory symptoms and fever and cough times 1 day. Upon my initial evaluation, the patient was found to be tachycardic and tachypneic and hypoxic, consistent with a possible sirs criteria. The patient was placed immediately on oxygen and fluids were ordered. Patient also had a chest x-ray and it was found to have pulmonary edema and the fluids were placed on hold. Patient was immediately given antibiotics as well. Due to the patient's clinical findings and symptoms the patient had a CT a ordered of the chest and for the patient's abdominal pain the patient had a CT of the abdomen ordered. The CTA of the chest showed no PE but showed CHF changes and pulmonary edema and a left lower lobe pneumonia. Patient CT of the abdomen shows no acute findings. Patient's EKG shows no acute findings. Patient's labs are essentially unremarkable except for elevated BNP. Patient was given IV Lasix. Patient admitted to the hospitalist service for further evaluation treatment. - Differential Diagnosis CHF, Sirs, sepsis, pneumonia, cough, URI, SOB, fever, hypoxia Critical Care Time: Yes Critical care time in (mins) excluding proc time.: 65 Critical care attestation.: If time is entered above; I have spent that time in minutes in the direct care of this critically ill patient, excluding procedure time. Critical Care Time: 65 minutes ED Disposition Clinical Impression: Hypoxia, Elevated brain natriuretic peptide (BNP) level, SIRS (systemic inflammatory response syndrome), New onset of congestive heart failure, SOB (shortness of breath) Fever Qualifiers: Fever type: unspecified Qualified Code(s): R50.9 - Fever, unspecified Pulmonary edema Qualifiers: Chronicity: acute Qualified Code(s): J81.0 - Acute pulmonary edema Pneumonia Qualifiers: Pneumonia type: due to unspecified organism Laterality: left Lung location: lower lobe of lung Qualified Code(s): J18.9 - Pneumonia, unspecified organism CHF exacerbation Qualifiers: Heart failure type: unspecified Qualified Code(s): I50.9 - Heart failure, unspecified Abdominal pain Qualifiers: Abdominal location: lower abdomen, unspecified Qualified Code(s): R10.30 - L ower abdominal pain, unspecified Disposition: [id number] OP ADMIT IP TO THIS HOSP Is pt being admited?: Yes Does the pt Need Aspirin: No Condition: Critical Time of Disposition: 23:12
[2019-07-02 20:07] LABS: Creatine Kinase MB 1.8 ng/mL (0.0-4.0)
[2019-07-02] MEDS ORDERED: HYDROmorphone 1 MG/1 ML INJ IV ONE (21:25)
--- NOTE | 2019-07-02 22:49 | Cat Scan Report ---
CT angiography of the chest with 2-D reconstructions INDICATION: Shortness of breath x2 weeks and pelvic pain Thin section axial images were obtained as well as 2-D reformatted MIP images in all 3 planes FINDINGS: There is slight to moderate mediastinal adenopathy probably reactive. There is a minimal le ft pleural effusion and small right pleural effusion. No pericardial fluid is seen. There is moderate cardiomegaly. No thoracic aortic aneurysm or dissection present. Lung windows show thickened septae consistent with interstitial edema. In addition there is relatively extensive left lower lobe consoli dation likely pneumonia. No pulmonary nodules or masses. No lung abscess seen. Routine axial images a s well as 2-D MIPS reformatted images show no evidence of emboli. CT of the abdomen shows a normal-appearing liver, spleen, pancreas, adrenal glands and kidneys. Galls tones are seen without cholecystitis. No biliary tree dilation. No fluid or adenopathy in the upper a bdomen. CT of the pelvis shows a normal appendix. No uterine masses are seen. There are small ovarian cysts w ith minimal free fluid. There is extensive colonic diverticulosis without definite diverticulitis. No hernia or bowel obstruction. No significant skeletal lesion. There is thickening of the wall the sig moid colon but again there is no surrounding inflammation. IMPRESSION: Mild heart failure with left lower lobe pneumonia. Incidental findings in the abdomen an d pelvis without acute process. No PTE seen. Automated exposure control was utilized to diminish radiation dose. Signer Name: Elton Plummer MD Signed: 07/02/2019 10:45 PM Workstation Name: [id number]
[2019-07-02] MEDS ORDERED: FUROSEMIDE 40 MG/4 ML INJ IV ONE (23:11)
[2019-07-03] MEDS ORDERED: DEXTROSE 50% IN WATER (25GM) 50 ML SYRINGE IV PRN (01:20)
[2019-07-03] MEDS ORDERED: ACETAMINOPHEN 325 MG TAB PO PRN (01:20)
[2019-07-03] MEDS ORDERED: LIDOCAINE-MPF (1%) 10 MG/1 ML VIAL 5 ML INFILTRATI ONE (01:20)
[2019-07-03] MEDS ORDERED: ALPRAZolam 0.25 MG TAB PO PRN (01:20)
[2019-07-03] MEDS ORDERED: NALOXONE 0.4 MG/1 ML INJ IV PRN (01:20)
[2019-07-03] MEDS ORDERED: MAGNESIUM HYDROXIDE (MOM) ORAL LIQD UDC PO PRN (01:20)
[2019-07-03] MEDS ORDERED: FUROSEMIDE 40 MG/4 ML INJ IV STA (01:20)
[2019-07-03] MEDS ORDERED: ONDANSETRON 4 MG/2 ML INJ IV PRN (01:20)
[2019-07-03] MEDS ORDERED: hydrALAZINE 20 MG/1 ML INJ IV PRN (01:37)
[2019-07-03] MEDS ORDERED: FUROSEMIDE 20 MG/2 ML INJ ONE (01:38)
--- NOTE | 2019-07-03 01:55 | History and Physical Report ---
History of Present Illness Date of examination: 07/03/19 Date of admission: 07/02/19 23:13 Chief complaint: Progressive SOB X 3 weeks History of present illness: 38 with last trimester Gestational Hypertension, anxiety, diverticulosis, presents with c/o progressive SOB in the last 3 weeks. She fsay she would get easily winded but did not know the cause. She says a productive cough started days ago and she had a recorded fever of 102.9 with saturations of 94% on RA upon arrival to the ED. She reports that her one year son is ill with a runny nose and fever- and was diagnosed with a viral URI according to the director of managed services who treated . She did not receive the influenza vaccination. She was tested negative for influenza A and B in the ED. Pt says during her second and her last , she has hypertension and she was treated but not since she delivered. She was unaware of any uncontrolled HTN till now. In the ED, her BP was 168/111. BNP was 2174. CTA revealed bilateral pleural effusions, moderate cardiomegaly, and a left infiltrate. Pt denies any out of the country travel or contact with anyone diagnosed with Coronavirus. Past History Past Medical History: other (gestational hypertension/Preclampsia) Past Surgical History: , Other Social history: full code. denies: smoking (1/2 pPD since 16 years old), alcohol abuse, prescription drug abuse Family history: hypertension Medications and Allergies Allergies Allergy/AdvReac Type Severity Reaction Status Date / Time No Known Allergies Allergy Verified 03/28/18 04:39 Home Medications Medication Instructions Recorded Confirmed Last Taken Type Pnv,Calcium 72/Iron/Folic Acid 1 tab PO QDAY 03/28/18 05/24/18 05/17/18 History [Pnv Plus Multivit Tab] Labetalol HCl 200 mg PO BID 05/24/18 05/24/18 05/20/18 History Docusate Sodium [Colace] 100 mg PO BID PRN #60 capsule 05/28/18 Unknown Rx Ferrous Sulfate [Feosol 325 MG tab] 325 mg PO BID #60 tablet 05/28/18 Unknown Rx Ibuprofen [Motrin] 800 mg PO Q8HR PRN #60 tablet 05/28/18 Unknown Rx oxyCODONE /ACETAMINOPHEN [Percocet 1 tab PO Q6HR PRN #30 tablet 05/28/18 Unknown Rx 5/325] Active Meds: Active Medications Acetaminophen (Tylenol) 650 mg PO Q6H PRN PRN Reason: Pain MILD(1-3)/Fever >100.5/POLLACK Albuterol/Ipratropium (Duoneb *Not For Prn Use*) 1 ampul IH Q6HRT [facility] Alprazolam (Xanax) 0.25 mg PO Q8H PRN PRN Reason: Anxiety Azithromycin (Zithromax) 500 mg PO QDAY [facility] Dextrose (D50w (25gm) Syringe) 50 ml IV Q30MIN PRN; Protocol PRN Reason: Hypoglycemia Furosemide (Lasix) 20 mg IV 0600,1800 [facility] Stop: 07/04/19 18:01 Hydralazine HCl (Apresoline) 20 mg IV Q4HR PRN PRN Reason: Hypertension Ceftriaxone Sodium (Rocephin/Ns 1 Gm/50 Ml) 1 gm in 50 mls @ 100 mls/hr IV DAILY [facility]; Protocol Magnesium Hydroxide (Milk Of Magnesia) 30 ml PO Q4H PRN PRN Reason: Constipation Morphine Sulfate (Morphine) 2 mg IV Q4H PRN PRN Reason: Pain, Moderate (4-6) Morphine Sulfate (Morphine) 4 mg IV Q4H PRN PRN Reason: Pain , Severe (7-10) Naloxone HCl (Naloxone) 0.1 mg IV Q2MIN PRN PRN Reason: Res Rate </= 8 or 02 SAT < 92% Ondansetron HCl (Zofran) 4 mg IV Q8H PRN PRN Reason: Nausea And Vomiting Senna (Senokot) 8.6 mg PO BID [facility] Sodium Chloride (Sodium Chloride Flush Syringe 10 Ml) 10 ml IV BID [facility] Sodium Chloride (Sodium Chloride Flush Syringe 10 Ml) 10 ml IV PRN PRN PRN Reason: LINE FLUSH Review of Systems All systems: negative Constitutional: fever Exam - Constitutional Vitals: Temp Pulse Resp BP Pulse Ox 99.6 F 113 H 34 H 139/91 98 07/02/19 20:10 07/03/19 01:30 07/03/19 01:30 07/03/19 01:30 07/03/19 01:30 General appearance: Present: mild distress, well-nourished. Absent: no acute distress - EENT Eyes: Present: PERRL ENT: hearing intact, clear oral mucosa - Neck Neck: Present: supple, normal ROM - Respiratory Respiratory effort: normal Respiratory: bilateral: diminished, rhonchi, negative: CTA - Cardiovascular Heart Sounds: Present: S1 & S2. Absent: rub, click - Extremities Extremities: pulses symmetrical, No edema Peripheral Pulses: within normal limits - Abdominal General gastrointestinal: Present: soft, non-tender, non-distended, normal bowel sounds Female genitourinary: Present: normal - Integumentary Integumentary: Present: clear, warm, dry - Musculoskeletal Musculoskeletal: gait normal, strength equal bilaterally - Psychiatric Psychiatric: appropriate mood/affect, intact judgment & insight - Neurologic Neurologic: CNII-XII intact, moves all extremities MARY CARMEN score - Mary Carmen Score Age > 65: (0) No Aspirin use within the Past 7 Days: (0) No 3 or more CAD Risk Factors: (1) Yes 2 or more Angina events in past 24 hrs: (0) No Known CAD with more than 50% Stenosis: (0) No Elevated Cardiac Markers: (0) No ST Deviation Greater than 0.5mm: (0) No MARY CARMEN Score: 1 Results - Labs CBC & Chem 7: 07/02/19 14:19 07/02/19 14:19 Labs: Laboratory Last Values WBC 7.5 K/mm3 (4.5-11.0) 07/02/19 14:19 RBC 4.83 M/mm3 (3.65-5.03) 07/02/19 14:19 Hgb 14.3 gm/dl (10.1-14.3) 07/02/19 14:19 Hct 43.4 % (30.3-42.9) H 07/02/19 14:19 MCV 90 fl (79-97) 07/02/19 14:19 MCH 30 pg (28-32) 07/02/19 14:19 MCHC 33 % (30-34) 07/02/19 14:19 RDW 14.0 % (13.2-15.2) 07/02/19 14:19 Plt Count 196 K/mm3 (140-440) 07/02/19 14:19 Lymph % (Auto) 7.5 % (13.4-35.0) L 07/02/19 14:19 Placer % (Auto) 6.1 % (0.0-7.3) 07/02/19 14:19 Eos % (Auto) 0.0 % (0.0-4.3) 07/02/19 14:19 Baso % (Auto) 0.3 % (0.0-1.8) 07/02/19 14:19 Lymph # 0.6 K/mm3 (1.2-5.4) L 07/02/19 14:19 Placer # 0.5 K/mm3 (0.0-0.8) 07/02/19 14:19 Eos # 0.0 K/mm3 (0.0-0.4) 07/02/19 14:19 Baso # 0.0 K/mm3 (0.0-0.1) 07/02/19 14:19 Seg Neutrophils % 86.1 % (40.0-70.0) H 07/02/19 14:19 Seg Neutrophils # 6.5 K/mm3 (1.8-7.7) 07/02/19 14:19 Sodium 135 mmol/L (137-145) L 07/02/19 14:19 Potassium 3.8 mmol/L (3.6-5.0) 07/02/19 14:19 Chloride 98.1 mmol/L (98-107) 07/02/19 14:19 Carbon Dioxide 21 mmol/L (22-30) L 07/02/19 14:19 Anion Gap 20 mmol/L 07/02/19 14:19 BUN 8 mg/dL (7-17) 07/02/19 14:19 Creatinine 0.6 mg/dL (0.7-1.2) L 07/02/19 14:19 Estimated GFR > 60 ml/min 07/02/19 14:19 BUN/Creatinine Ratio 13 % 07/02/19 14:19 Glucose 120 mg/dL (65-100) H 07/02/19 14:19 Lactic Acid 1.00 mmol/L (0.7-2.0) 07/02/19 23:08 Calcium 8.9 mg/dL (8.4-10.2) 07/02/19 14:19 Total Creatine Kinase 70 units/L (30-135) 07/02/19 18:58 CK-MB (CK-2) 1.8 ng/mL (0.0-4.0) 07/02/19 18:58 CK-MB (CK-2) Rel Index 2.5 (0-4) 07/02/19 18:58 Troponin T < 0.010 ng/mL (0.00-0.029) 07/02/19 19:16 NT-Pro-B Natriuret Pep 2174 pg/mL (0-450) H 07/02/19 18:58 HCG, Quant 1.16 mIU/mL (0-4) 07/02/19 14:19 Urine Color Yellow (Yellow) 07/02/19 14:27 Urine Turbidity Clear (Clear) 07/02/19 14:27 Urine pH 8.0 (5.0-7.0) H 07/02/19 14:27 Ur Specific [place] 1.011 (1.003-1.030) 07/02/19 14:27 Urine Protein 100 mg/dl mg/dL (Negative) 07/02/19 14:27 Urine Glucose (UA) Neg mg/dL (Negative) 07/02/19 14:27 Urine Ketones Neg mg/dL (Negative) 07/02/19 14:27 Urine Blood Neg (Negative) 07/02/19 14:27 Urine Nitrite Neg (Negative) 07/02/19 14:27 Urine Bilirubin Neg (Negative) 07/02/19 14:27 Urine Urobilinogen < 2.0 mg/dL (<2.0) 07/02/19 14:27 Ur Leukocyte Esterase Neg (Negative) 07/02/19 14:27 Urine WBC (Auto) 1.0 /HPF (0.0-6.0) 07/02/19 14:27 Urine RBC (Auto) 1.0 /HPF (0.0-6.0) 07/02/19 14:27 U Epithel Cells (Auto) 7.0 /HPF (0-13.0) 07/02/19 14:27 Urine Bacteria (Auto) 1+ /HPF (Negative) 07/02/19 14:27 Influenza A (Rapid) Negative (Negative) 07/02/19 Unknown Influenza B (Rapid) Negative (Negative) 07/02/19 Unknown Assessment and Plan Assessment and plan: Malignant Hypertension Urgency - Likely due to occult untreated essential HTN -I see she is on Labetalol daily so I question her medication adherence - Must rule out Hypertensive CHF. I orderted a TTecho - PRN Hydralazine IV. - IV lasix total of 60mg IV now given acute respiratory distress. As I walked towards her in the ED, her initial sats was 76% and her oxygen was off. She had taken it off a while ago. I urged her to keep her oxygen NC on as advised. Acute Respiratory Failure with Hypoxia - Due to above and Left PNA, pleural effusions, bilateral - continue IV lasix for 4 more doses, oxygen support. CTA negative for PE -Await TTEcho findings. - continue telemonitoring Left CAP - with preceding Viral URI - Fever noted - NO signs of Sepsis - on Azithromycin and Rocephin. Await PRocalcitonin Tobacco Dependence - pt counseled on cessation - Nicotine patch as requested. full code Advance Directives: No VTE prophylaxis?: Chemical
[2019-07-03] MEDS ORDERED: niCARdipine 50 MG in SODIUM CHLORIDE 0.9% 250ML 230 ML IV SCH (02:00)
[2019-07-03] MEDS: IPRATROPIUM/ALBUTEROL SULFATE 3 ML AMPUL.NEB IH SCH ×4 (02:46→19:53)
[2019-07-03] MEDS: MORPHINE 4 MG/1 ML INJ IV PRN (03:06)
[2019-07-03 06:00] LABS: Basophils % (Auto) 0.3 % (0.0-1.8); Hematocrit 39.5 % (30.3-42.9); Lymphocytes # (Auto) 0.5 K/mm3 (1.2-5.4); Lymphocytes % (Auto) 7.3 % (13.4-35.0); Mean Corpuscular HGB Conc 33 % (30-34); Mean Corpuscular Volume 90 fl (79-97); Monocytes # (Auto) 0.6 K/mm3 (0.0-0.8); Monocytes % (Auto) 8.5 % (0.0-7.3); Platelet Count 169 K/mm3 (140-440); Red Blood Count 4.41 M/mm3 (3.65-5.03); Red Cell Distribution Width 14.3 % (13.2-15.2)
[2019-07-03] MEDS ORDERED: FUROSEMIDE 20 MG/2 ML INJ IV SCH (06:00)
[2019-07-03 06:18] LABS: BUN/Creatinine Ratio 10; Blood Urea Nitrogen 7 mg/dL (7-17); Calcium 8.4 mg/dL (8.4-10.2); Hemolysis Index 0
[2019-07-03] MEDS: SENNOSIDES 8.6 MG TAB PO SCH ×2 (09:45→22:34)
[2019-07-03] MEDS ORDERED: cefTRIAXone/NS 1 GM/50 ML 1 GM/50 ML BAG IV SCH (10:00)
--- NOTE | 2019-07-03 11:49 | Progress Note ---
Assessment and Plan - Patient Problems (1) Acute respiratory failure with hypoxia Current Visit: Yes Status: Acute Plan to address problem: Improved (2) New onset of congestive heart failure Current Visit: Yes Status: Acute Plan to address problem: Patient has new onset CHF. Ejection fraction is 35 to 40%. Patient was admitted to ICU for acute respiratory failure. Patient improved with diuretics. Patient also on antibiotics. Diuretics to be optimized. (3) Hypertension Current Visit: Yes Status: Chronic Qualifiers: Hypertension type: essential hypertension Qualified Code(s): I10 - Essential (primary) hypertension Plan to address problem: Add antihypertensives in the form of Mireles and beta-blockers (4) Pneumonia Current Visit: Yes Status: Acute Qualifiers: Pneumonia type: due to unspecified organism Laterality: left Lung location: lower lobe of lung Qualified Code(s): J18.9 - Pneumonia, unspecified organism Plan to address problem: Patient on antibiotics for pneumonia Pneumonia possible but mostly unlikely. (5) Elevated brain natriuretic peptide (BNP) level Current Visit: Yes Status: Acute Plan to address problem: Secondary to CHF. (6) DVT prophylaxis Current Visit: Yes Status: Acute Plan to address problem: On heparin and GI prophylaxis Subjective Date of service: 07/03/19 Principal diagnosis: CHF exacerbation Interval history: 38-year-old -[place] female with history of gestational hypertension comes in for progressive shortness of breath of 2 weeks duration. In the [facility] room patient had a fever of 102.6. Patient has exertional dyspnea. Shortness of breath on very minimal exertion. Orthopnea present. No chest pain. No history of congestive heart failure. No recent travel. Patient is admitted for provisional diagnosis of pneumonia and CHF. Patient is very orthopneic. No paroxysmal nocturnal dyspnea. No chest pain. Objective - Constitutional Vitals: Vital Signs - 12hr 07/03/19 07/03/19 07/03/19 00:30 01:30 01:31 Temperature Pulse Rate 118 H 113 H 112 H Pulse Rate [ Anterior Bilateral Throughout] Respiratory 38 H 34 H 40 H Rate Respiratory Rate [Anterior Bilateral Throughout] Blood Pressure 156/105 139/91 Blood Pressure 139/91 [Right] O2 Sat by Pulse 96 98 98 Oximetry 07/03/19 07/03/19 07/03/19 01:50 02:00 02:30 Temperature Pulse Rate 118 H 100 H 107 H Pulse Rate [ Anterior Bilateral Throughout] Respiratory 26 H 32 H Rate Respiratory Rate [Anterior Bilateral Throughout] Blood Pressure 139/91 149/95 147/103 Blood Pressure [Right] O2 Sat by Pulse 96 Oximetry 07/03/19 07/03/19 07/03/19 02:45 02:50 03:00 Temperature Pulse Rate 102 H 102 H Pulse Rate [ 101 H Anterior Bilateral Throughout] Respiratory 30 H 30 H Rate Respiratory 20 Rate [Anterior Bilateral Throughout] Blood Pressure 141/99 138/95 Blood Pressure [Right] O2 Sat by Pulse 99 98 98 Oximetry 07/03/19 07/03/19 07/03/19 03:06 03:55 04:00 Temperature 98.6 F Pulse Rate 98 H Pulse Rate [ Anterior Bilateral Throughout] Respiratory 30 H 28 H Rate Respiratory Rate [Anterior Bilateral Throughout] Blood Pressure 129/86 Blood Pressure [Right] O2 Sat by Pulse 97 Oximetry 07/03/19 07/03/19 07/03/19 05:01 06:00 07:00 Temperature Pulse Rate 105 H 95 H 95 H Pulse Rate [ Anterior Bilateral Throughout] Respiratory 25 H 18 22 Rate Respiratory Rate [Anterior Bilateral Throughout] Blood Pressure 133/81 123/82 132/83 Blood Pressure [Right] O2 Sat by Pulse 95 95 97 Oximetry 07/03/19 07/03/19 07/03/19 08:00 08:01 08:11 Temperature 98.5 F Pulse Rate Pulse Rate [ 89 Anterior Bilateral Throughout] Respiratory 19 Rate Respiratory 20 Rate [Anterior Bilateral Throughout] Blood Pressure 126/80 Blood Pressure [Right] O2 Sat by Pulse 95 Oximetry 07/03/19 07/03/19 09:00 10:00 Temperature Pulse Rate 88 88 Pulse Rate [ Anterior Bilateral Throughout] Respiratory 25 H 24 Rate Respiratory Rate [Anterior Bilateral Throughout] Blood Pressure 118/68 121/75 Blood Pressure [Right] O2 Sat by Pulse 94 89 Oximetry General appearance: Present: no acute distress, well-nourished - EENT Eyes: PERRL, EOM intact ENT: hearing intact, clear oral mucosa Ears: bilateral: normal - Neck Neck: supple, normal ROM - Respiratory Respiratory effort: normal Respiratory: bilateral: CTA - Breasts Breasts: normal - Cardiovascular Heart rate: 78 Rhythm: regular Heart Sounds: Present: S1 & S2. Absent: gallop, rub Extremities: pulses intact, No edema, normal color, Full ROM - Gastrointestinal General gastrointestinal: Present: soft, non-tender, non-distended, normal bowel sounds - Genitourinary Female genitourinary: normal - Integumentary Integumentary: clear, warm, dry - Musculoskeletal Musculoskeletal: 1, strength equal bilaterally - Neurologic Neurologic: moves all extremities - Psychiatric Psychiatric: memory intact, appropriate mood/affect, intact judgment & insight - Labs CBC & Chem 7: 07/03/19 04:32 07/03/19 04:32 Labs: Abnormal lab results 07/02/19 07/02/19 07/02/19 Range/Units 14:19 14:19 14:27 Hct 43.4 H (30.3-42.9) % Lymph % (Auto) 7.5 L (13.4-35.0) % [place] % (Auto) (0.0-7.3) % Lymph # 0.6 L (1.2-5.4) K/mm3 Seg Neutrophils % 86.1 H (40.0-70.0) % Sodium 135 L (137-145) mmol/L Potassium (3.6-5.0) mmol/L Chloride (98-107) mmol/L Carbon Dioxide 21 L (22-30) mmol/L Creatinine 0.6 L (0.7-1.2) mg/dL Glucose 120 H (65-100) mg/dL NT-Pro-B Natriuret Pep (0-450) pg/mL Urine pH 8.0 H (5.0-7.0) 07/02/19 07/03/19 07/03/19 Range/Units 18:58 04:32 04:32 Hct (30.3-42.9) % Lymph % (Auto) 7.3 L (13.4-35.0) % [place] % (Auto) 8.5 H (0.0-7.3) % Lymph # 0.5 L (1.2-5.4) K/mm3 Seg Neutrophils % 83.9 H (40.0-70.0) % Sodium 136 L (137-145) mmol/L Potassium 3.5 L (3.6-5.0) mmol/L Chloride 97.4 L (98-107) mmol/L Carbon Dioxide 21 L (22-30) mmol/L Creatinine (0.7-1.2) mg/dL Glucose (65-100) mg/dL NT-Pro-B Natriuret Pep 2174 H 4593 H (0-450) pg/mL Urine pH (5.0-7.0)
[2019-07-03] MEDS ORDERED: cefTRIAXone/NS 1 GM/50 ML 1 GM/50 ML BAG IV ONE (13:00)
[2019-07-03] MEDS: AZITHROMYCIN 250 MG TAB PO SCH (16:37)
[2019-07-03] MEDS: POTASSIUM CHLORIDE 10 MEQ 10 MEQ/100 ML BAG IV SCH ×2 (17:44→19:16)
[2019-07-03] MEDS ORDERED: POTASSIUM CHLORIDE ER 20 MEQ TAB PO SCH (19:11)
[2019-07-03] MEDS: FUROSEMIDE 40 MG/4 ML INJ IV SCH (19:33)
[2019-07-03] MEDS: MORPHINE 2 MG/1 ML INJ IV PRN (22:18)
[2019-07-03] MEDS: POTASSIUM CHLORIDE ER 20 MEQ TAB PO SCH (22:35)
[2019-07-04] MEDS: MORPHINE 4 MG/1 ML INJ IV PRN (00:29)
[2019-07-04] MEDS: IPRATROPIUM/ALBUTEROL SULFATE 3 ML AMPUL.NEB IH SCH (03:09)
[2019-07-04] MEDS: MORPHINE 2 MG/1 ML INJ IV PRN (04:27)
[2019-07-04] MEDS: FUROSEMIDE 40 MG/4 ML INJ IV SCH ×2 (06:23→18:09)
[2019-07-04] MEDS: cefTRIAXone/NS 2 GM/100 ML 2 GM/100 ML BAG IV SCH (10:37)
[2019-07-04] MEDS: POTASSIUM CHLORIDE ER 20 MEQ TAB PO SCH ×2 (10:39→21:30)
[2019-07-04] MEDS: AZITHROMYCIN 250 MG TAB PO SCH (10:39)
[2019-07-04] MEDS: SENNOSIDES 8.6 MG TAB PO SCH ×2 (10:39→21:30)
--- NOTE | 2019-07-04 18:28 | Progress Note ---
Assessment and Plan (1) Acute respiratory failure with hypoxia Current Visit: Yes Status: Acute Plan to address problem: Improved , Continue diuretics (2) New onset of congestive heart failure Current Visit: Yes Status: Acute Plan to address problem: Patient has new onset CHF. Ejection fraction is 35 to 40%. Patient was admitted to ICU for acute respiratory failure. Patient improved with diuretics. Patient also on antibiotics. Diuretics to be optimized. Continue antihypertensives and diuretics (3) Hypertension Current Visit: Yes Status: Chronic Qualifiers: Hypertension type: essential hypertension Qualified Code(s): I10 - Essential (primary) hypertension Plan to address problem: Continue antihypertensives in the form of Mireles and beta-blockers (4) Pneumonia Current Visit: Yes Status: Acute Qualifiers: Pneumonia type: due to unspecified organism Laterality: left Lung location: lower lobe of lung Qualified Code(s): J18.9 - Pneumonia, unspecified organism Plan to address problem: Patient on antibiotics for pneumonia Pneumonia possible but mostly unlikely. (5) Elevated brain natriuretic peptide (BNP) level Current Visit: Yes Status: Acute Plan to address problem: Secondary to CHF. (6) DVT prophylaxis Current Visit: Yes Status: Acute Plan to address problem: On heparin and GI prophylaxis Subjective Date of service: 07/04/19 Principal diagnosis: CHF exacerbation Interval history: 38-year-old -[place] female with history of gestational hypertension comes in for progressive shortness of breath of 2 weeks duration. In the emergency room patient had a fever of 102.6. Patient has exertional dyspnea. Shortness of breath on very minimal exertion. Orthopnea present. No chest pain. No history of congestive heart failure. No recent travel. Patient is admitted for provisional diagnosis of pneumonia and CHF. Patient is very orthopneic. No paroxysmal nocturnal dyspnea. No chest pain. Symptomatically a lot better Objective - Constitutional Vitals: Vital Signs - 12hr 07/04/19 07/04/19 07/04/19 06:38 08:33 10:00 Temperature 98.1 F Pulse Rate 98 H 93 H Respiratory 18 Rate Blood Pressure 121/76 O2 Sat by Pulse Oximetry 07/04/19 07/04/19 11:48 14:37 Temperature 98.2 F Pulse Rate 88 Respiratory 16 Rate Blood Pressure 109/69 O2 Sat by Pulse 100 100 Oximetry General appearance: Present: no acute distress, well-nourished - EENT Eyes: PERRL, EOM intact ENT: hearing intact, clear oral mucosa Ears: bilateral: normal - Neck Neck: supple, normal ROM - Respiratory Respiratory effort: normal Respiratory: bilateral: CTA - Breasts Breasts: normal - Cardiovascular Heart rate: 78 Rhythm: regular Heart Sounds: Present: S1 & S2. Absent: gallop, rub Extremities: pulses intact, No edema, normal color, Full ROM - Gastrointestinal General gastrointestinal: Present: soft, non-tender, non-distended, normal bowel sounds - Genitourinary Female genitourinary: normal - Integumentary Integumentary: clear, warm, dry - Musculoskeletal Musculoskeletal: 1, strength equal bilaterally - Neurologic Neurologic: moves all extremities - Psychiatric Psychiatric: memory intact, appropriate mood/affect, intact judgment & insight - Labs CBC & Chem 7: 07/03/19 04:32 07/03/19 04:32
[2019-07-04] MEDS: KETOROLAC 30 MG/1 ML INJ IV PRN (18:47)
[2019-07-04] MEDS ORDERED: ZOLPIDEM 5 MG TAB PO PRN (18:57)
[2019-07-04] MEDS: ALBUTEROL 2.5 MG/3 ML NEBU IH PRN (22:13)
[2019-07-05] MEDS: KETOROLAC 30 MG/1 ML INJ IV PRN (03:54)
[2019-07-05] MEDS: FUROSEMIDE 40 MG/4 ML INJ IV SCH (06:11)
[2019-07-05] MEDS: ALBUTEROL 2.5 MG/3 ML NEBU IH PRN (09:09)
[2019-07-05] MEDS: POTASSIUM CHLORIDE ER 20 MEQ TAB PO SCH (10:47)
[2019-07-05] MEDS: SENNOSIDES 8.6 MG TAB PO SCH (10:47)
[2019-07-05] MEDS: cefTRIAXone/NS 2 GM/100 ML 2 GM/100 ML BAG IV SCH (10:47)
[2019-07-05] MEDS: AZITHROMYCIN 250 MG TAB PO SCH (10:47)
[2019-07-05 12:50] VITALS: BP 145/96
[2019-07-05] MEDS: MORPHINE 2 MG/1 ML INJ IV PRN (13:06)
--- NOTE | 2019-07-05 15:10 | Discharge Summary ---
Providers - Providers Date of Admission: 07/02/19 23:13 Date of discharge: 07/05/19 Attending physician: ELLA ZHAO Primary care physician: DIRECTOR PART Hospitalization Condition: Critical Hospital course: 38-year-old -[place] female with history of gestational hypertension comes in for progressive shortness of breath of 2 weeks duration. In the emergency room patient had a fever of 102.6. Patient has exertional dyspnea. Shortness of breath on very minimal exertion. Orthopnea present. No chest pain. No history of congestive heart failure. No recent travel. Patient is admitted for provisional diagnosis of pneumonia and CHF. Patient is very orthopneic. No paroxysmal nocturnal dyspnea. No chest pain. Symptomatically a lot better. (1) Acute respiratory failure with hypoxia Current Visit: Yes Status: Acute Plan to address problem: Improved , Continue diuretics in oral form (2) Congestive heart failure Current Visit: Yes Status: Acute Plan to address problem: Patient has new onset CHF. Ejection fraction is 35 to 40%. Patient was admitted to ICU for acute respiratory failure. Patient improved with diuretics. Patient also on antibiotics. Diuretics to be optimized. Continue antihypertensives and diuretics [facility] (3) Hypertension Current Visit: Yes Status: Chronic Qualifiers: Hypertension type: essential hypertension Qualified Code(s): I10 - Essential (primary) hypertension Plan to address problem: Continue antihypertensives in the form of Mireles and beta-blockers (4) Pneumonia Current Visit: Yes Status: Acute Qualifiers: Pneumonia type: due to unspecified organism Laterality: left Lung locat ion: lower lobe of lung Qualified Code(s): J18.9 - Pneumonia, unspecified organism Plan to address problem: Patient on antibiotics for pneumonia Pneumonia possible but mostly unlikely. No oral antibiotics at discharge (5) Elevated brain natriuretic peptide (BNP) level Current Visit: Yes Status: Acute Plan to address problem: Secondary to CHF. Disposition: - TO HOME OR SELFCARE Core Measure Documentation - Palliative Care Palliative Care/ Comfort Measures: Not Applicable - Core Measures Any of the following diagnoses?: none Exam - Constitutional Vitals: Temp Pulse Resp BP Pulse Ox 98.3 F 91 H 20 145/96 94 07/05/19 11:55 07/05/19 11:55 07/05/19 13:06 07/05/19 11:55 07/05/19 11:55 General appearance: Present: no acute distress, well-nourished - EENT Eyes: Present: PERRL ENT: hearing intact, clear oral mucosa - Neck Neck: Present: supple, normal ROM - Respiratory Respiratory effort: normal Respiratory: bilateral: CTA - Cardiovascular Heart rate: 76 Rhythm: regular Heart Sounds: Present: S1 & S2. Absent: rub, click - Extremities Extremities: no ischemia, pulses intact, pulses symmetrical, No edema Peripheral Pulses: within normal limits - Abdominal General gastrointestinal: Present: soft, non-tender, non-distended, normal bowel sounds Female genitourinary: Present: normal - Integumentary Integumentary: Present: clear, warm, dry - Musculoskeletal Musculoskeletal: gait normal, strength equal bilaterally - Psychiatric Psychiatric: appropriate mood/affect, intact judgment & insight - Neurologic Neurologic: CNII-XII intact, moves all extremities - Allied Health Allied health notes reviewed: nursing, case management Plan Activity: no restrictions Diet: low fat, low cholesterol, low salt Special Instructions: restrict fluid intake to (1 L), record daily weights Follow up with: LOULOU GALO MD [Primary Care Provider] - 7 Days EUSEBIO EDOUARD MD [Staff Physician] - 7 Days
== END 2019-07-05 16:37 | disposition home or self-care (01) | DRG 291 ==
LOC: ED 12:51 → IMCU 23:13 → CC1 07-03 00:40 → 4A 07-03 13:43
PROVIDERS: ADMIT Hospitalist; ATTEND Internal Medicine
DX: I11.0 Hypertensive heart disease with heart failure (principal); J96.01 Acute respiratory failure with hypoxia; J18.9 Pneumonia, unspecified organism; R65.10 Systemic inflammatory response syndrome (SIRS) of non-infectious origin without acute organ dysfunction; I50.9 Heart failure, unspecified; I16.0 Hypertensive urgency; F17.200 Nicotine dependence, unspecified, uncomplicated; F41.9 Anxiety disorder, unspecified; Z82.49 Family history of ischemic heart disease and other diseases of the circulatory system; Z79.899 Other long term (current) drug therapy; Z71.6 Tobacco abuse counseling
CPT/HCPCS: 36415; 71046; 71275; 74177; 80048; 81001; 82140; 82550; 82553; 83880; 84145; 84443; 84484; 84702; 85025; 86738; 87040; 87070; 87205; 87400; 93005; 93010; 93306; 94640; 94760; 96365; 96375; G0378; J0360; J0692; J0696; J1170; J1885; J1940; J2270; J2405; J3480; J7030; J7050; Q9967

== ENCOUNTER 2021-12-04 08:52 | Emergency (ER) | payer MEDICAID ==
[2021-12-04 10:39] LABS: Alanine Aminotransferase 16 units/L (7-56); Albumin 4.4 g/dL (3.9-5); Blood Urea Nitrogen 15 mg/dL (7-17); Calcium 8.5 mg/dL (8.4-10.2); Hemolysis Index 5
[2021-12-04 10:52] LABS: Bilirubin,Urine NEG (Negative); Blood,Urine NEG (Negative); Color,Urine Yellow (Yellow); Protein,Urine <15 mg/dL mg/dL (Negative); Urobilinogen,Urine < 2.0 mg/dL (<2.0)
[2021-12-04 10:54] LABS: Mucus,Urine 3+ /HPF
[2021-12-04 10:59] LABS: BUN/Creatinine Ratio 25
[2021-12-04 11:08] LABS: Eosinophils # (Auto) 0.1 K/mm3 (0.0-0.4); Eosinophils % (Auto) 1.4 % (0.0-4.3); Hematocrit 39.1 % (30.3-42.9); Hemoglobin 12.9 gm/dl (10.1-14.3); Lymphocytes # (Auto) 1.8 K/mm3 (1.2-5.4); Lymphocytes % (Auto) 30.7 % (13.4-35.0); Mean Corpuscular HGB Conc 33 % (30-34); Mean Corpuscular Volume 92 fl (79-97); Monocytes # (Auto) 0.4 K/mm3 (0.0-0.8); Monocytes % (Auto) 6.9 % (0.0-7.3); Platelet Count 245 K/mm3 (140-440); Red Blood Count 4.25 M/mm3 (3.65-5.03); Red Cell Distribution Width 12.2 % (13.2-15.2)
[2021-12-04] MEDS ORDERED: KETOROLAC 30 MG/1 ML INJ IM ONE (11:47)
[2021-12-04] MEDS ORDERED: CYCLOBENZAPRINE 10 MG TAB PO ONE (11:47)
--- NOTE | 2021-12-04 13:26 | Cat Scan Report ---
CT ABDOMEN AND PELVIS WITHOUT CONTRAST HISTORY: r flank pian. COMPARISON: CT abdomen/pelvis from 07/02/2019 TECHNIQUE: CT images of the abdomen and pelvis were obtained without administration of intravenous co ntrast. All CT scans at this location are performed using CT dose reduction for ALARA by means of au tomated exposure control. FINDINGS: Lungs/bones: Lung bases are clear. Mild degenerative changes in the spine with no acute osseous abno rmality. Abdomen/pelvis: The kidneys appear normal. There is cholelithiasis with no acute inflammation. The liver is enlarged and steatotic. No biliary d uctal dilatation. The spleen, pancreas, adrenals, and proximal GI tract appear unremarkable. Urinary bladder and reproductive organs are unremarkable. No pelvic free fluid. There is colonic dive rticulosis with no acute inflammation the appendix and terminal ileum appear normal. IMPRESSION: 1. No acute abnormality identified. 2. Incidental findings as above including cholelithiasis without inflammation. Signer Name: Syd Rojas MD Signed: 12/04/2021 1:21 PM Workstation Name: [email or web address]
--- NOTE | 2021-12-04 14:02 | Emergency Department Report ---
ED Abdominal Pain HPI - General Chief Complaint: Abdominal Pain Stated Complaint: RT FLANK PAIN/REF BY URGENT CARE Time Seen by Provider: 12/04/21 11:29 Source: patient Mode of arrival: Ambulatory Limitations: No Limitations - History of Present Illness Initial Comments: 41-year-old black female with a past medical history of hypertension presents to the emergency department for evaluation of 2-week history of right flank pain. She states that she has not taken hevv-[id number]-[id number] medication at home without improvement and was seen by urgent care earlier today and sent here to rule out a kidney stone. She states that the pain is worse when she is lying still and is associated with some nausea and vomiting. She denies fever, dysuria, diarrhea, and vaginal discharge. MD Complaint: flank pain (Right side only) -: Gradual, week(s) (2) Location: R flank Radiation: none Migration to: no migration Severity: severe Severity scale (0 -10): 9 Quality: aching Consistency: constant Worsens With: other (Lying still) Associated Symptoms: nausea, vomiting. denies: diarrhea, fever, chills, dysuria, hematemesis, hematochezia, melena, hematuria, anorexia, syncope Treatments Prior to Arrival: NSAIDs - Related Data LMP Date: 11/28/21 Previous Rx's Medication Instructions Recorded Last Taken Type Ibuprofen [Motrin] 800 mg PO Q8HR PRN #60 tablet 05/28/18 07/02/19 14:00 Rx Aspirin EC [Ecotrin] 81 mg PO QDAY #100 tablet. 07/05/19 Unknown Rx Furosemide [Lasix TAB] 40 mg PO QDAY #30 tablet 07/05/19 Unknown Rx Potassium Chloride [K-Dur] 20 meq PO QDAY #30 tablet 07/05/19 Unknown Rx Valsartan 80 mg PO QDAY #30 tablet 07/05/19 Unknown Rx Zolpidem [Ambien] 5 mg PO QHS PRN #10 tablet 07/05/19 Unknown Rx carvediloL [Coreg] 3.125 mg PO BID #60 tablet 07/05/19 Unknown Rx Cyclobenzaprine [Flexeril] 10 mg PO TID PRN #30 tab 12/04/21 Unknown Rx Ketorolac [Toradol] 10 mg PO Q6H PRN #12 tab 12/04/21 Unknown Rx Ondansetron [Zofran Odt] 4 mg PO Q8HR PRN #12 tab.rapdis 12/04/21 Unknown Rx Allergies Allergy/AdvReac Type Severity Reaction Status Date / Time No Known Allergies Allergy Verified 03/28/18 04:39 ED Review of Systems ROS: Stated complaint: RT FLANK PAIN/REF BY URGENT CARE Other details as noted in HPI Comment: All other systems reviewed and negative Constitutional: denies: chills, fever, malaise, weakness Respiratory: denies: shortness of breath Cardiovascular: denies: chest pain, palpitations Gastrointestinal: abdominal pain, nausea, vomiting. denies: diarrhea, hematemesis, melena, hematochezia Genitourinary: denies: urgency, dysuria, frequency, hematuria, discharge Musculoskeletal: back pain (Right flank) Neurological: denies: headache ED Past Medical Hx - Past Medical History Hx Hypertension: Yes Hx Diabetes: No Hx Deep Vein Thrombosis: No Hx Renal Disease: No Hx Sickle Cell Disease: No Hx Seizures: No Hx Asthma: No Hx COPD: No Hx HIV: No Additional medical history: diverticulosis - Surgical History Additional Surgical History: - Social History Smoking Status: Current Every Day Smoker Substance Use Type: Alcohol - Medications Home Medications: Home Medications Medication Instructions Recorded Confirmed Last Taken Type Ibuprofen [Motrin] 800 mg PO Q8HR PRN #60 tablet 05/28/18 07/03/19 07/02/19 1 4:00 Rx Aspirin EC [Ecotrin] 81 mg PO QDAY #100 tablet. 07/05/19 Unknown Rx Furosemide [Lasix TAB] 40 mg PO QDAY #30 tablet 07/05/19 Unknown Rx Potassium Chloride [K-Dur] 20 meq PO QDAY #30 tablet 07/05/19 Unknown Rx Valsartan 80 mg PO QDAY #30 tablet 07/05/19 Unknown Rx Zolpidem [Ambien] 5 mg PO QHS PRN #10 tablet 07/05/19 Unknown Rx carvediloL [Coreg] 3.125 mg PO BID #60 tablet 07/05/19 Unknown Rx Cyclobenzaprine [Flexeril] 10 mg PO TID PRN #30 tab 12/04/21 Unknown Rx Ketorolac [Toradol] 10 mg PO Q6H PRN #12 tab 12/04/21 Unknown Rx Ondansetron [Zofran Odt] 4 mg PO Q8HR PRN #12 tab.rapdis 12/04/21 Unknown Rx ED Physical Exam - General Limitations: No Limitations General appearance: alert, in no apparent distress - Head Head exam: Present: atraumatic, normocephalic - Eye Eye exam: Present: normal appearance. Absent: conjunctival injection, periorbital swelling, periorbital tenderness - Neck Neck exam: Present: normal inspection, full ROM. Absent: tenderness, lymphadenopathy - Respiratory Respiratory exam: Present: normal lung sounds bilaterally. Absent: respiratory distress, wheezes, rales, rhonchi, stridor, chest wall tenderness - Cardiovascular Cardiovascular Exam: Present: regular rate, normal heart sounds - GI/Abdominal GI/Abdominal exam: Present: soft, normal bowel sounds. Absent: distended, tenderness, guarding, rebound, rigid - Extremities Exam Extremities exam: Present: normal inspection, full ROM, normal capillary refill. Absent: tenderness, pedal edema, joint swelling, calf tenderness - Back Exam Back exam: Present: normal inspection, tenderness (Right flank area only. Worse with palpation). Absent: CVA tenderness (R), CVA tenderness (L), vertebral tenderness - Neurological Exam Neurological exam: Present: alert, oriented X3, normal gait - Psychiatric Psychiatric exam: Present: normal affect, normal mood - Skin Skin exam: Present: warm, dry, intact, normal color ED Course Vital Signs 12/04/21 12/04/21 12/04/21 09:10 11:18 11:23 Temperature 98.2 F 98.2 F 98.2 F Pulse Rate 78 78 74 Respiratory 18 20 20 Rate Blood Pressure 128/74 Blood Pressure 153/82 128/74 [Right] O2 Sat by Pulse 100 100 100 Oximetry 12/04/21 14:26 Temperature 98.2 F Pulse Rate 78 Respiratory 20 Rate Blood Pressure Blood Pressure 136/74 [Right] O2 Sat by Pulse 97 Oximetry ED Medical Decision Making - Lab Data Result diagrams: 12/04/21 09:27 12/04/21 09:27 - Radiology Data Radiology results: report reviewed, image reviewed CT abdomen pelvis without contrast: FINDINGS: Lungs/bones: Lung bases are clear. Mild degenerative changes in the spine with no acute osseous abnormality. Abdomen/pelvis: The kidneys appear normal. There is cholelithiasis with no acute inflammation. The liver is enlarged and steatotic. No biliary ductal dilatation. The spleen, pancreas, adrenals, and proximal GI tract appear unremarkable. Urinary bladder and reproductive organs are unremarkable. No pelvic free fluid. There is colonic diverticulosis with no acute inflammation the appendix and terminal ileum appear normal. IMPRESSION: 1. No acute abnormality identified. 2. Incidental findings as above including cholelithiasis without inflammation. - Medical Decision Making 41-year-old black female with a past medical history of hypertension presents to the emergency department for evaluation of 2-week history of right flank pain. She states that she has not taken pstw-ukb-[id number] medication at home without improvement and was seen by urgent care earlier today and sent here to rule out a kidney stone. She states that the pain is worse when she is lying still and is associated with some nausea and vomiting. She denies fever, dysuria, diarrhea, and vaginal discharge. Labs and urine unremarkable. CT abdomen and pelvis without any acute abnormalities but noted to have gallstones. Pain resolved after medication. Pain likely secondary to musculoskeletal pain only, so patient will be discharged home with Toradol, Flexeril, and Zofran to use as needed. She was advised of incidental finding of gallstones and given name of hris developer and general surgeon to follow-up with as needed. She is advised to return to the emergency department as needed. She verbalizes understanding of and agreement with plan of care. Critical care attestation.: If time is entered above; I have spent that time in minutes in the direct care of this critically ill patient, excluding procedure time. ED Disposition Clinical Impression: Flank pain Gallstone Qualifiers: Cholecystitis presence: without cholecystitis Biliary obstruction: without biliary obstruction Qualified Code(s): K80.20 - Calculus of gallbladder without cholecystitis without obstruction Disposition: 01 HOME / SELF CARE / HOMELESS Is pt being admited?: No Does the pt Need Aspirin: No Condition: Stable Instructions: Cholelithiasis, Moak-lh-Wson, Flank Pain, Adult, [id number], Abdominal Pain (ED) Additional Instructions: Take medications as prescribed. Follow-up with your primary care provider for further evaluation and management. Return to the emergency department as needed. Prescriptions: Cyclobenzaprine [Flexeril] 10 mg PO TID PRN #30 tab PRN Reason: Muscle Spasm Ketorolac [Toradol] 10 mg PO Q6H PRN #12 tab PRN Reason: Pain Ondansetron [Zofran Odt] 4 mg PO Q8HR PRN #12 tab.rapdis PRN Reason: Nausea And Vomiting Referrals: TIFFANIE ASHTON MD [Staff Physician] - 3-5 Days ELIZABETH MOONEY MD [Staff Physician] - 3-5 Days PERRY JENKINS DO [Staff Physician] - 3-5 Days Time of Disposition: 14:02
[2021-12-04 14:27] VITALS: BP 136/74
== END 2021-12-04 14:26 | disposition home or self-care (01) ==
LOC: ED 08:52
DX: R10.9 Unspecified abdominal pain (principal); K80.80 Other cholelithiasis without obstruction; I10 Essential (primary) hypertension; F17.200 Nicotine dependence, unspecified, uncomplicated
CPT/HCPCS: 36415; 74176; 80053; 81001; 83690; 84703; 85025; 96372; 99284; J1885